=== PATIENT | female | born 1965 | race Caucasian/White ===

== ENCOUNTER → 2018-03-29 15:51 | Outpatient (CLI) | payer MEDICARE, SELFPAY ==
[2018-03-29 21:35] LABS: M R Staph aureus DNA By PCR POSITIVE (Negative); Staph aureus DNA By PCR POSITIVE (Negative)
[2018-03-29 21:36] LABS: Probe Check PASS
== END ==
PROVIDERS: Family Provider Family Medicine Geriatric Medicine; PCP Family Medicine Geriatric Medicine; Visit Provider Family Medicine Geriatric Medicine
DX: L03.119 Cellulitis of unspecified part of limb (principal)
CPT/HCPCS: 87070; 87077; 87186; 87205; 87640

== ENCOUNTER → 2018-04-18 08:35 | Outpatient (CLI) | payer MEDICARE, SELFPAY ==
--- NOTE | 2018-04-18 08:38 | US_ITS ---
STUDY: ULTRASOUND OF THE FEMALE PELVIS - COMPLETE REASON FOR EXAM: Female, 52 years old. Postmenopausal bleeding. LMP: The patient is postmenopausal. TECHNIQUE: Transabdominal and Transvaginal TECHNICAL QUALITY: Adequate. COMPARISON: None. FINDINGS: The uterus is anteverted and is in a midline position. The uterus measures 5.4 cm x 3.3 cm x 2.9 cm. Normal uterine cervix. The endometrium measures 3.0 mm in thickness, and is . There is no demonstrated endometrial mass. There is no demonstrated myometrial mass. I.U.D. - The patient does not have an I.U.D. The right ovary is non-visualized. The left ovary is non-visualized. There is no fluid in the cul-de-sac. Polycystic ovary disease: No. US/Transvaginal Non- IMPRESSION: Normal female pelvis. Electronically Signed: Bowen Dorado MD at 15:25 EDT Tel [phone], Service support ,
--- NOTE | 2018-04-18 08:38 | US_ITS ---
STUDY: ULTRASOUND OF THE FEMALE PELVIS - COMPLETE REASON FOR EXAM: Female, 52 years old. Postmenopausal bleeding. LMP: The patient is postmenopausal. TECHNIQUE: Transabdominal and Transvaginal TECHNICAL QUALITY: Adequate. COMPARISON: None. FINDINGS: The uterus is anteverted and is in a midline position. The uterus measures 5.4 cm x 3.3 cm x 2.9 cm. Normal uterine cervix. The endometrium measures 3.0 mm in thickness, and is . There is no demonstrated endometrial mass. There is no demonstrated myometrial mass. I.U.D. - The patient does not have an I.U.D. The right ovary is non-visualized. The left ovary is non-visualized. There is no fluid in the cul-de-sac. Polycystic ovary disease: No. US/Pelvic (Non ) IMPRESSION: Normal female pelvis. Electronically Signed: Bowen Dorado MD at 15:25 EDT Tel [phone], Service support ,
== END ==
PROVIDERS: Family Provider Family Medicine Geriatric Medicine; PCP Family Medicine Geriatric Medicine; Visit Provider Nurse Practitioner Women's Health
DX: N93.8 Other specified abnormal uterine and vaginal bleeding (principal)
CPT/HCPCS: 76830; 76856

== ENCOUNTER → 2018-08-10 11:36 | Outpatient (CLI) | payer MEDICARE, SELFPAY ==
[2018-08-10 13:17] LABS: Thyroid Stim Hormone (TSH) 6.13 uIU/mL (0.358-3.74)
== END ==
PROVIDERS: Family Provider Family Medicine Geriatric Medicine; PCP Family Medicine Geriatric Medicine; Visit Provider Family Medicine Geriatric Medicine
DX: E03.9 Hypothyroidism, unspecified (principal)
CPT/HCPCS: 36415; 84443

== ENCOUNTER → 2018-09-09 08:50 | Outpatient (CLI) | payer MEDICARE, SELFPAY | PROVIDERS: Family Provider Family Medicine Geriatric Medicine; PCP Family Medicine Geriatric Medicine; Referring Provider Family Medicine Geriatric Medicine; Visit Provider Family Medicine Geriatric Medicine | DX: E05.90 Thyrotoxicosis, unspecified without thyrotoxic crisis or storm (principal) ==

== ENCOUNTER → 2018-10-10 08:51 | Outpatient (CLI) | payer MEDICARE, SELFPAY ==
[2018-10-10 11:07] LABS: Thyroid Stim Hormone (TSH) 0.43 uIU/mL (0.358-3.74)
== END ==
PROVIDERS: Family Provider Family Medicine Geriatric Medicine; PCP Family Medicine Geriatric Medicine; Referring Provider Family Medicine Geriatric Medicine; Visit Provider Family Medicine Geriatric Medicine
DX: E05.90 Thyrotoxicosis, unspecified without thyrotoxic crisis or storm (principal)
CPT/HCPCS: 36415; 84443

== ENCOUNTER → 2018-10-19 10:11 | Outpatient (CLI) | payer MEDICARE, SELFPAY ==
--- NOTE | 2018-10-19 10:29 | RAD_ITS ---
STUDY: X-RAY - ABDOMEN/PELVIS REASON FOR EXAM: Female, 53 years old. Fecal impaction. TECHNIQUE: AP supine and upright views of the abdomen and pelvis. COMPARISON: None. FINDINGS: Normal visualized lung bases. There is a moderate amount of colonic fecal material. There is no demonstrated free abdominal air. The visualized liver, spleen and kidneys are grossly normal in size and morphology. Normal soft tissue structures. Normal visualized osseous structures. RAD/Abd Inc Decub and/or Erect IMPRESSION: Moderate amount of fecal material is seen in the colon. Electronically Signed: Bowen Dorado MD at 11:01 EST Tel [phone], Service support ,
[2018-10-19 13:26] LABS: Absolute Lymphocyte Count 0.96 X10^3/ul (0.83-4.51); Absolute Neutrophil Count 2.6 X10^3/uL (2.0-7.7); Basophil# 0.11 X10^3/uL; Basophil% 2.4 % (0-1); Eosinophil# 0.12 X10^3/uL; Eosinophils% 2.6 % (0-5); Hematocrit 42.5 % (37-47); Hemoglobin 13.6 g/dl (12.0-15.0); Lymphocyte # 0.96 X10^3/ul (4.0); Lymphocyte % 20.9 % (19-41); Mean Corpuscular Hgb 31.8 pg (27.0-32.0); Mean Corpuscular Volume 99.3 fL (81-99); Mean Platelet Vol. 11.4 fl (6.2-12.0); Monocyte# 0.78 X10^3/uL; Neutrophil # 2.63 X10^3/uL (2.7-7.7); Neutrophil % 57.1 % (47-70); Platelet Count 258 K/mm3 (150-450); RBC Distribution Width CV 15.2 % (11.6-14.6); RBC Distribution Width SD 55.3 fl (35.1-43.9); Red Blood Count 4.28 M/mm3 (4.2-5.4); White Blood Count 4.6 K/mm3 (4.4-11.0)
[2018-10-19 13:27] LABS: POSITIVE COUNT NO; POSITIVE DIFFERENTIAL NO; POSITIVE MORPHOLOGY NO
[2018-10-19 13:35] LABS: Vitamin D,25 Hydroxy 30.4 ng/mL (29.95-100.01)
[2018-10-19 13:38] LABS: ALB/GLOB Ratio 0.6 RATIO (0.9-2.4); AST(SGOT) 21 U/L (15-37); Alanine Aminotransfer ALT/SGPT 25 U/L (13-56); Albumin, Serum 2.8 g/dL (3.2-5.0); Alkaline Phosphatase 96 U/L (45-117); Anion Gap 8 (5-15); BUN 14 mg/dL (7-18); BUN/Creat Ratio 15.4 RATIO (10-20); Calcium,Total 8.8 mg/dL (8.5-10.1); Chloride 105 mmol/L (98-107); Creatinine, Serum 0.91 mg/dL (0.55-1.02); EST Glomerular Filtration Rate 69 mL/min (>60); Est Glom Filt Rate - Afr Amer 83 mL/min (>60); Globulin 4.5 g/dL (2.2-4.2); Glucose 78 mg/dL (74-106); Potassium 4.2 mmol/L (3.5-5.1); Protein, Total 7.3 g/dL (6.4-8.2); Sodium Level 140 mmol/L (136-145); Thyroid Stim Hormone (TSH) 0.34 uIU/mL (0.358-3.74)
[2018-10-19 16:19] LABS: M R Staph aureus DNA By PCR POSITIVE (Negative); Probe Check PASS; Staph aureus DNA By PCR POSITIVE (Negative)
== END ==
LOC: POLAB3 10:11 → RAD 10:26
PROVIDERS: Family Provider Family Medicine Geriatric Medicine; PCP Family Medicine Geriatric Medicine; Referring Provider Family Medicine Geriatric Medicine; Visit Provider Family Medicine Geriatric Medicine
DX: I10 Essential (primary) hypertension (principal); B95.62 Methicillin resistant Staphylococcus aureus infection as the cause of diseases classified elsewhere; E55.9 Vitamin D deficiency, unspecified; K56.41 Fecal impaction
CPT/HCPCS: 36415; 74019; 80053; 82306; 84443; 85025; 87640

== ENCOUNTER → 2019-06-13 10:36 | Outpatient (CLI) | payer MEDICARE, SELFPAY ==
[2019-06-13 12:18] LABS: Absolute Neutrophil Count 2.6 X10^3/uL (2.0-7.7); Basophil# 0.12 X10^3/uL; Basophil% 2.5 % (0-1); Eosinophil# 0.26 X10^3/uL; Eosinophils% 5.5 % (0-5); Hematocrit 42.6 % (37-47); Hemoglobin 13.7 g/dL (12.0-15.0); Lymphocyte % 21.2 % (19-41); Mean Corp Hgb Conc 32.2 g/dL (32-36); Mean Corpuscular Hgb 31.9 pg (27.0-32.0); Mean Corpuscular Volume 99.3 fL (81-99); Mean Platelet Vol. 11.1 fl (6.2-12.0); Monocyte# 0.78 X10^3/uL; Monocyte% 16.5 % (0-10); NRBC Flagged by Analyzer 0 % (0-5); Neutrophil # 2.56 X10^3/uL (2.7-7.7); Neutrophil % 54.3 % (47-70); Platelet Count 212 K/mm3 (150-450); RBC Distribution Width CV 15.3 % (11.6-14.6); RBC Distribution Width SD 56.7 fl (35.1-43.9); Red Blood Count 4.29 M/mm3 (4.2-5.4); White Blood Count 4.7 K/mm3 (4.4-11.0)
[2019-06-13 12:43] LABS: ALB/GLOB Ratio 0.7 RATIO (0.9-2.4); AST(SGOT) 20 U/L (15-37); Alanine Aminotransfer ALT/SGPT 33 U/L (13-56); Albumin, Serum 3.2 g/dL (3.2-5.0); Alkaline Phosphatase 95 U/L (45-117); Anion Gap 7 (5-15); BUN 16 mg/dL (7-18); BUN/Creat Ratio 17.1 RATIO (10-20); Calcium,Total 9.3 mg/dL (8.5-10.1); Chloride 107 mmol/L (98-107); Creatinine, Serum 0.94 mg/dL (0.55-1.02); EST Glomerular Filtration Rate 67 mL/min (>60); Est Glom Filt Rate - Afr Amer 80 mL/min (>60); Globulin 4.4 g/dL (2.2-4.2); Glucose 81 mg/dL (74-106); Protein, Total 7.6 g/dL (6.4-8.2); Sodium Level 144 mmol/L (136-145); Thyroid Stim Hormone (TSH) 0.86 uIU/mL (0.358-3.74)
== END ==
PROVIDERS: Family Provider Family Medicine Geriatric Medicine; PCP Family Medicine Geriatric Medicine; Visit Provider Family Medicine Geriatric Medicine
DX: I10 Essential (primary) hypertension (principal)
CPT/HCPCS: 36415; 80053; 84443; 85025

== ENCOUNTER → 2019-10-10 13:57 | Outpatient (CLI) | payer MEDICARE, SELFPAY ==
[2019-10-10 16:04] LABS: M R Staph aureus DNA By PCR Negative (Negative); Probe Check PASS; Specimen Processing Control PASS; Staph aureus DNA By PCR NEGATIVE (Negative)
== END ==
PROVIDERS: Family Provider Family Medicine Geriatric Medicine; PCP Family Medicine Geriatric Medicine; Visit Provider Family Medicine Geriatric Medicine
DX: L03.116 Cellulitis of left lower limb (principal); B95.62 Methicillin resistant Staphylococcus aureus infection as the cause of diseases classified elsewhere
CPT/HCPCS: 87070; 87205; 87640

== ENCOUNTER → 2019-10-23 10:15 | Outpatient (CLI) | payer MEDICARE, SELFPAY ==
[2019-10-23 13:09] LABS: Absolute Lymphocyte Count 0.61 X10^3/uL (0.83-4.51); Absolute Neutrophil Count 4.4 X10^3/uL (2.0-7.7); Basophil% 1.6 % (0-1); Eosinophil# 0.08 X10^3/uL; Eosinophils% 1.3 % (0-5); Hematocrit 39.9 % (37-47); Lymphocyte # 0.61 X10^3/ul (4.0); Mean Corp Hgb Conc 32.6 g/dL (32-36); Mean Corpuscular Hgb 31.9 pg (27.0-32.0); Mean Platelet Vol. 11.5 fl (6.2-12.0); Monocyte# 0.86 X10^3/uL; Monocyte% 14.1 % (0-10); NRBC Flagged by Analyzer 0 % (0-5); Neutrophil # 4.41 X10^3/uL (2.7-7.7); Neutrophil % 72.7 % (47-70); Platelet Count 216 K/mm3 (150-450); RBC Distribution Width CV 14.8 % (11.6-14.6); RBC Distribution Width SD 54.4 fl (35.1-43.9); Red Blood Count 4.07 M/mm3 (4.2-5.4); White Blood Count 6.1 K/mm3 (4.4-11.0)
[2019-10-23 13:24] LABS: Vitamin D,25 Hydroxy 30.3 ng/mL (29.95-100.01)
[2019-10-23 13:30] LABS: ALB/GLOB Ratio 0.6 RATIO (0.9-2.4); AST(SGOT) 24 U/L (15-37); Alanine Aminotransfer ALT/SGPT 27 U/L (13-56); Albumin, Serum 2.7 g/dL (3.2-5.0); Alkaline Phosphatase 92 U/L (45-117); Anion Gap 3 (5-15); BUN 13 mg/dL (7-18); BUN/Creat Ratio 13.4 RATIO (10-20); Calcium,Total 8.8 mg/dL (8.5-10.1); Chloride 105 mmol/L (98-107); Creatinine, Serum 0.97 mg/dL (0.55-1.02); EST Glomerular Filtration Rate 64 mL/min (>60); Est Glom Filt Rate - Afr Amer 77 mL/min (>60); Globulin 4.8 g/dL (2.2-4.2); Glucose 103 mg/dL (74-106); Potassium 4.4 mmol/L (3.5-5.1); Protein, Total 7.5 g/dL (6.4-8.2); Sodium Level 137 mmol/L (136-145); Thyroid Stim Hormone (TSH) 3.07 uIU/mL (0.358-3.74)
== END ==
PROVIDERS: Family Provider Family Medicine Geriatric Medicine; PCP Family Medicine Geriatric Medicine; Referring Provider Family Medicine Geriatric Medicine; Visit Provider Family Medicine Geriatric Medicine
DX: I10 Essential (primary) hypertension (principal); E55.9 Vitamin D deficiency, unspecified; R50.9 Fever, unspecified
CPT/HCPCS: 36415; 80053; 82306; 84443; 85025; 87633

== ENCOUNTER → 2020-02-23 11:36 | Outpatient (CLI) | payer MEDICARE, SELFPAY ==
[2020-02-23 12:47] LABS: Absolute Lymphocyte Count 1.07 X10^3/uL (0.83-4.51); Absolute Neutrophil Count 2.3 X10^3/uL (2.0-7.7); Basophil# 0.09 X10^3/uL; Eosinophil# 0.19 X10^3/uL; Eosinophils% 4.3 % (0-5); Hematocrit 38.3 % (37-47); Hemoglobin 12.2 g/dL (12.0-15.0); Lymphocyte # 1.07 X10^3/ul (4.0); Mean Corp Hgb Conc 31.9 g/dL (32-36); Mean Corpuscular Hgb 32.1 pg (27.0-32.0); Mean Corpuscular Volume 100.8 fL (81-99); Mean Platelet Vol. 11.3 fl (6.2-12.0); Monocyte# 0.79 X10^3/uL; Monocyte% 17.7 % (0-10); NRBC Flagged by Analyzer 0 % (0-5); Neutrophil # 2.31 X10^3/uL (2.7-7.7); Neutrophil % 51.8 % (47-70); Platelet Count 180 K/mm3 (150-450); RBC Distribution Width CV 14.4 % (11.6-14.6); RBC Distribution Width SD 52.7 fl (35.1-43.9); White Blood Count 4.5 K/mm3 (4.4-11.0)
[2020-02-23 13:09] LABS: Anion Gap 4 (5-15); BUN 11 mg/dL (7-18); BUN/Creat Ratio 13.6 RATIO (10-20); Calcium,Total 8.5 mg/dL (8.5-10.1); Chloride 110 mmol/L (98-107); Creatinine, Serum 0.81 mg/dL (0.55-1.02); EST Glomerular Filtration Rate 78 mL/min (>60); Est Glom Filt Rate - Afr Amer 95 mL/min (>60); Glucose 80 mg/dL (74-106); Potassium 4.1 mmol/L (3.5-5.1); Sodium Level 143 mmol/L (136-145)
== END ==
PROVIDERS: PCP Family Medicine Geriatric Medicine; Visit Provider Family Medicine Geriatric Medicine
DX: R42 Dizziness and giddiness (principal)
CPT/HCPCS: 36415; 80048; 85025

== ENCOUNTER → 2020-06-27 08:29 | Outpatient (CLI) | payer MEDICARE, SELFPAY ==
--- NOTE | 2020-06-27 08:40 | CT_ITS ---
STUDY: CT MAXILLOFACIAL SINUSES REASON FOR EXAM: Female, 54 years old. SINUSITIS HAVING HEADACHES RADIATION DOSAGE (If Supplied By Facility): CTDIvol = ( 33.06 ) mGy, DLP = ( 730.55 ) mGycm TECHNIQUE: The patient was scanned in a multi detector CT scanner. High resolution axial imaging was performed without the administration of intravenous contrast material. Sagittal and coronal images were reconstructed. Individualized dose optimization techniques were used for this CT. COMPARISON: None. FINDINGS: FRONTAL SINUSES: Normal aeration, without mucosal inflammatory disease. ETHMOIDAL SINUSES: Normal aeration, without mucosal inflammatory disease. MAXILLARY SINUSES: Normal aeration, without mucosal inflammatory disease. SPHENOIDAL SINUSES: Normal aeration, without mucosal inflammatory disease. There is patency of the bilateral maxillary infundibuli with normal uncinate processes, ethmoid bullae, and hiatus semilunaris. Normal bilateral middle turbinates. Normal bilateral inferior turbinates. There is a minimal left sided nasal septal deviation, but without a nasal septal spur. There is patency of the bilateral nasal airways. The visualized osseous structures are normal. The visualized bilateral orbital contents are normal. CT/Sinus/Facial Bone IMPRESSION: Normal CT examination of the maxillofacial sinuses. Electronically Signed: Bowen Dorado, at 10:42 EDT , Service support ,
== END ==
PROVIDERS: PCP Family Medicine Geriatric Medicine; Referring Provider Otolaryngology; Visit Provider Otolaryngology
DX: J32.9 Chronic sinusitis, unspecified (principal)
CPT/HCPCS: 70486

== ENCOUNTER 2020-08-14 04:01 | Inpatient (IN) | payer MEDICARE, SELFPAY ==
[2020-08-14] VITALS (15 sets, daily range): BP systolic 80–148; BP diastolic 43–107; PULSE 70–126; RESP 18–20; TEMP 36.6–37.7; O2SAT 94–100; BMI 40.8; BMI 40.2; BMI 40.3
--- NOTE | 2020-08-14 04:02 | RAD_ITS ---
STUDY: X-RAY CHEST REASON FOR EXAM: Female, 55 years old. patient with cough, headache, chills, frequent urination and confusion. -- BEST IMAGES POSSIBLE, PATIENT HAS A HX OF DOWN SYNDROME AND DEMENTIA TECHNIQUE: Single AP portable view of the chest. COMPARISON: None. FINDINGS: Ill-defined subpleural groundglass opacities are seen more prominent in the lung bases , may represent atypical pneumonia or viral pneumonia (COVID-19 ?). There is no demonstrated pleural abnormality. Normal size heart. Normal mediastinum and obdulia. Normal visualized pulmonary arteries. Normal visualized aortic arch and descending thoracic aorta. Normal visualized thoracic spine. Normal visualized ribs, clavicles, and shoulders. There is no demonstrated abnormality of the visualized soft tissue structures of the upper abdomen. RAD/Chest 1 View (Portable) IMPRESSION: Ill-defined subpleural groundglass opacities are seen more prominent in the lung bases , may represent atypical pneumonia or viral pneumonia (COVID-19 ?). Electronically Signed: Kenny Baker, at 6:03 EST Tel , Service support ,
--- NOTE | 2020-08-14 04:03 | ED.DCSUM_ITS ---
History of Present Illness Chief Complaint: General Illness Informant: Patient, Family Onset: Days Context: Gradual Onset Timing: Continuous Current Severity: Moderate Maximum Severity: Moderate Narrative: Patient is a 55-year-old female with medical history significant for Down syndrome, anxiety, and dementia who presents to the emergency department with increased urinary frequency and some confusion. Per the sister at the bedside who is the patient's POA, she has been having some increasing urinary frequency for the past few days. She states she is also been having a cough. she states she does get urinary tract infections from time to time. She states that she is also been complaining of mild cough. Tonight, she had some chills but no fever. She currently lives [facility] [place] [facility]. 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 The patient has had some precipitous decline over the past few months with her Down syndrome and dementia. She is lost some ability to function with her gait. She is also been more confused, especially at night. Prior similar symptoms: No Recent Illness/Hospitalization: No Past Medical History - Allergies and Home Meds Allergies/Adverse Reactions: Allergies No Known Allergies Allergy (Verified 08/14/20 04:05) Primary Care Physician: Silvio Hurtado Chi, MD [Primary Care Provider] - Prior records reviewed: Yes Past Medical History: - - Down syndrome, dementia, anxiety Surgical History: noncontributory Review of Systems General: Reports: Chills. Denies: Fever, Sweats Eyes: Denies: Visual changes - bilaterally, Diplopia ENT: Denies: Rhinorrhea, Sore throat Cardiovascular: Denies: Chest pain, Palpitations Respiratory: Reports: Cough. Denies: Dyspnea, Dyspnea on exertion Gastrointestinal: Denies: Abdominal pain, Nausea, Vomiting, Diarrhea, Melena, Hematochezia Genitourinary: Reports: Dysuria, Hematuria, Frequency Musculoskeletal: Denies: Back pain, Extremity Pain Skin: Denies: Rash, Wounds Neurological: Denies: Headache, Weakness, Numbness Physical Exam Inital Vital Signs reviewed: Yes General: Well nourished, Well developed, No Acute Distress Head: Normocephalic, Atraumatic Eyes: Perrl, EOMI ENT: Moist mucous membranes, No rhinorrhea Neck: Supple, Nontender Cardiovascular: Regular rate, Regular rhythm, No murmurs Respiratory: No distress, CTA bilaterally, Chest nontender Abdomen: Soft, Nontender, Nondistended, Normal bowel sounds Back: Nontender, Normal Inspection Extremities: Nontender, No edema Skin: Normal color, No rash Neurological: Alert, Oriented x3, Cranial nerves II-XII grossly intact, Normal Strength, Normal Sensation Psychological: Normal affect, Normal Mood Diagnostic/Tx/Re-eval - Medical Decision Making On arrival, the patient is agitated. Her sister states that she is not comfortable in medical situations because of her Down syndrome. She had borderline oxygen saturations of 90 and had a T-max of 100. We were able to obtain a urine, but this obviously did not show infection. I discussed this with the sister. She is comfortable with more aggressive measures. Because of the patient's agitation and confusion, she was given 10 mg of IM Geodon. We were able to obtain blood work. She does have a leukocytosis, but otherwise her labs are unremarkable. Her chest x-ray is concerning for by lobar pneumonia. Her Covid is pending. When the patient got out of bed to use the bedside commode, she became hypoxic and tachypneic with saturations of 86%. With her hypoxia and infectious process, I do feel that she will require admission. The patient was discussed with the hospitalist. Impression 1. Sepsis 2. Pneumonia 3. Hypoxia ED Disposition - Plan for ED Patient: Referrals: Silvio Hurtado Chi, MD [Primary Care Provider] -
[2020-08-14] MEDS: Ziprasidone IM 20 MG/ML VIAL 10 MG IM (04:40)
[2020-08-14 04:45] LABS: Bacteria 0 SEEN /hpf (None Seen); Color, Urine Yellow (Yellow); Glucose, Dipstick Normal (Normal); Ketone-Dipstick Negative (Negative); Leukocyte Esterase-Dipstick Negative /ul (Negative); Mucous, Urine 0 SEEN /hpf (<or=2+); Nitrite-Dipstick Negative (Negative); Occult Blood-Urine Negative /ul (Negative); Protein-Dipstick 15 mg/dl (Negative); Red Blood Cells-Urine 0 SEEN /hpf (0-5); Specific Gravity, Urine 1.015 (1.002-1.030); Urine Bilirubin Dipstick Negative (Negative); Urine Clarity Clear (Clear); Urine Urobilinogen Normal (Normal); Urine pH 6.5 (5.0 - 8.0); White Blood Cells 0 SEEN /hpf (0-5)
[2020-08-14 04:51] LABS: Squamous Epithelial Cells - UA 0-5 SEEN /hpf (5-10)
[2020-08-14] MEDS: 0.9% Normal Saline 1,000 ML 1000 ML IV (05:09)
[2020-08-14 05:19] LABS: Absolute Lymphocyte Count 0.39 X10^3/uL (0.83-4.51); Absolute Neutrophil Count 11.3 X10^3/uL (2.0-7.7); Basophil# 0.06 X10^3/uL; Basophil% 0.5 % (0-1); Eosinophil# 0.03 X10^3/uL; Eosinophils% 0.2 % (0-5); Hematocrit 40.7 % (37-47); Hemoglobin 13.3 g/dL (12.0-15.0); Lymphocyte # 0.39 X10^3/ul (4.0); Lymphocyte % 3.1 % (19-41); Mean Corp Hgb Conc 32.7 g/dL (32-36); Mean Corpuscular Hgb 31.4 pg (27.0-32.0); Mean Corpuscular Volume 96.2 fL (81-99); Mean Platelet Vol. 10.7 fl (6.2-12.0); Monocyte# 0.62 X10^3/uL; NRBC Flagged by Analyzer 0 % (0-5); Neutrophil # 11.29 X10^3/uL (2.7-7.7); Neutrophil % 90.8 % (47-70); POSITIVE DIFFERENTIAL YES; Platelet Count 215 K/mm3 (150-450); RBC Distribution Width CV 14.6 % (11.6-14.6); RBC Distribution Width SD 51.6 fl (35.1-43.9); Red Blood Count 4.23 M/mm3 (4.2-5.4); White Blood Count 12.4 K/mm3 (4.4-11.0)
[2020-08-14 05:21] LABS: Differential Indicated SCAN CRITERIA MET
[2020-08-14 05:43] LABS: ALB/GLOB Ratio 0.7 RATIO (0.9-2.4); AST(SGOT) 33 U/L (15-37); Alanine Aminotransfer ALT/SGPT 29 U/L (13-56); Alkaline Phosphatase 92 U/L (45-117); Anion Gap 5 (5-15); BUN 15 mg/dL (7-18); Calcium,Total 8.6 mg/dL (8.5-10.1); Chloride 103 mmol/L (98-107); Creatinine, Serum 0.94 mg/dL (0.55-1.02); EST Glomerular Filtration Rate 66 mL/min (>60); Est Glom Filt Rate - Afr Amer 80 mL/min (>60); Estimated Creatinine Clearance 82.95 ml/min; Globulin 4.4 g/dL (2.2-4.2); Glucose 125 mg/dL (74-106); Lactic Acid 1.2 mmol/L (0.4-1.9); Potassium 4.4 mmol/L (3.5-5.1); Protein, Total 7.4 g/dL (6.4-8.2); Sodium Level 136 mmol/L (136-145)
[2020-08-14 05:45] LABS: Differential Comment SCANNED
--- NOTE | 2020-08-14 05:52 | HP.PCM_ITS ---
Problem List (1) Sepsis Status: Acute Qualifiers: Sepsis type: sepsis due to unspecified organism Sepsis acute organ dysfunction status: unspecified Qualified Code(s): A41.9 - Sepsis, unspecified organism (2) Encephalopathy acute Status: Acute (3) Pneumonia Status: Acute Qualifiers: Pneumonia type: due to unspecified organism Laterality: bilateral Lung location: unspecified part of lung Qualified Code(s): J18.9 - Pneumonia, unspecified organism (4) Suspected COVID-19 virus infection Status: Acute (5) Anxiety and depression Status: Chronic (6) Dementia Status: Chronic Qualifiers: Dementia type: unspecified type (7) Hypothyroidism Status: Chronic Qualifiers: Hypothyroidism type: unspecified Qualified Code(s): E03.9 - Hypothyroidism, unspecified (8) Down syndrome Status: Chronic History of Present Illness Date of Admission: 08/14/20 Chief Complaint: Fever, chills, cough, confusion, urinary frequency The patient is a 55 y/o F w/ PMHx: Hypothyroidism, Down Syndrome, Dementia unclear type with unclear behavioral disturbance history, Anxiety and Depression, Morbid Obesity who presents to the [facility] ED on 08/14/20 living currently with her Sister (AXEL) with history of 3 days of increased urinary frequency, confusion, fever and chills with recent cough prompting referral to [facility] ED initially for concern for UTI. Sister also noted sister appeared only this evening to be short of breath. She was very agitated upon presentation and combative upon presentation. Family notes she has been more agitated and upset in the evenings. The patient does go to work with her sister who works at a bank he notes that they are isolated in a single room. He does take her grocery shopping but notes that she wears a mask. Work-up in the ED included T1 100, heart rate initially 126, BP 134/77, respiratory rate 18, 94% on room air, CBC with WBC 12.4, hemoglobin 13.3, platelet 215 with left shift with concurrent lymphopenia, CMP with glucose 125, lactic acid 1.2, urinalysis not severe appearing, COVID lab pending, CXR with bilobar PNA. In the ED patient ambulation with decreased oxygenation 86% on RA from bedside commode to ED bed. In the ED patient administered azithromycin, rocephin, NS and Geodon secondary to agitation and combativeness. Past Medical History Past Medical History (Chronic Problems): Chronic Problems Anxiety and depression (Chronic) Dementia (Chronic) Hypothyroidism (Chronic) Down syndrome (Chronic) Allergies No Known Allergies Allergy (Verified 08/14/20 04:05) Home Medications: Ambulatory Orders Medication Instructions Recorded Citalopram [Celexa] 20 mg PO DAILY 08/14/20 Donepezil HCl 1 tab PO DAILY 08/14/20 Levothyroxine Sodium [Euthyrox] 112 mcg PO DAILY 08/14/20 Surgical History: - - Uterine fibroid resection. Psychiatric History: Anxiety, Depression [employer] History: uterine fibroids Lives: With Family Smoking Status: Never smoker Tobacco Use: Non-smoker Alcohol: None Drugs: None - *Family History Maternal History Items: Cancer - History of lung cancer with tobacco use concurrent history., Diabetes Paternal History Items: Cancer - History of lung cancer with tobacco use history concurrently., Diabetes Review of Systems Constitutional: Reports: Anorexia, Chills, Fever, Malaise, Weakness, Fatigue. Denies: Weight Change HEENT: Reports: Sinus Congestion. Denies: Head Aches, Sinus Drainage Cardiovascular: Denies: Chest Pain, Palpitations Respiratory: Reports: Cough, Shortness of Breath. Denies: Shortness of breath at rest, Shortness of breath upon exertion, Sputum production Gastrointestinal: Denies: Abdominal Pain, Nausea, Vomiting Genitourinary: Reports: Frequency. Denies: Dysuria Musculoskeletal: Reports: Joint Pain. Denies: Joint Tenderness Skin: Denies: Rash, Wounds Neurological: Reports: Confusion. Denies: Focal weakness, Numbness, Tingling Psychiatric: Reports: Anxiety, Depression. Denies: Homicidal Ideations, Suicidal Ideations Endocrine: Reports: Heat/ Cold Intolerance Hematologic/ Lymphatic: Denies: Easy Bruising, Easy Bleeding VTE Information - Inpt Only VTE Present on Admission: No VTE Mechan Device Prophylaxis: SCD's VTE Pharm Prophylaxis ordered?: Yes Subjective: Patient seated upright in the ED bed, fatigued, recent Geodon, no distress currently. Objective: Physical Examination: General: Patient sleeping, does awaken during examination but falls back asleep, not currently alert, not answering orientation questions, recent Geodon administration secondary to agitation, seated upright in the ED bed, no acute distress currently. Skin: normal color, turgor, no icterus, cyanosis. HEENT: AT/NC, EOMI, PERRLA, dry MM, no carotid bruits or JVD noted. Lungs: Diminished breath sounds bilaterally, greater bilateral bases, mildly increased effort, no obvious distress, no rales, ronchi or wheezing. Heart: Tachycardic with regular rhythm; no gallop, rub audible. Abdomen: soft, morbidly obese, NTTP, ND, normal BS, no obvious HSM however habitus makes examination difficult. Extremities: no cyanosis, clubbing, or edema. Neurological: Patient sleeping, does awaken during examination but falls back asleep, not currently alert, not answering orientation questions, recent Geodon administration secondary to agitation, seated upright in the ED bed, no acute distress currently; cognitive function not baseline intact with underlying dementia history; pupils equally reactive to light and accomodation; cranial nerves difficult to assess given current sedate habitus but when awakens grossly appears normal, moving all extremities to stimuli, strength severely global decreased. Psychiatric: affect appears currently flat, fatigued, received sedation, was very combative and anxious prior, no acute evidence of depressive or anxiety feelings. - Physical Exam Vitals/I&O's: Vital Signs Temp Pulse Resp BP Pulse Ox 99.9 F H 86 18 134/77 H 98 08/14/20 05:15 08/14/20 05:15 08/14/20 05:15 08/14/20 05:15 08/14/20 05:15 Oxygen Flow Rate (L/min) 2 Oxygen Delivery Method Nasal Cannula Weight: 169 lb 5.04 oz Body Mass Index (BMI) 40.8 Laboratory Results 08/14/20 04:35: Urine Color Yellow, Urine Clarity Clear, Urine pH 6.5, Ur Specific [place] 1.015, Urine Protein 15 H, Urine Glucose (UA) Normal, Urine Ketones Negative, Urine Occult Blood Negative, Urine Nitrite Negative, Urine Bilirubin Negative, Urine Urobilinogen Normal, Ur Leukocyte Esterase Negative, Urine RBC 0 SEEN, Urine WBC 0 SEEN, Ur Squamous Epith Cells 0-5 SEEN, Urine Bacteria 0 SEEN, Urine Mucus 0 SEEN 08/14/20 04:58: COVID-19 (JAZMIN) Pending 08/14/20 05:10: WBC 12.4 H, RBC 4.23, Hgb 13.3, Hct 40.7, MCV 96.2, MCH 31.4, MCHC 32.7, RDW Std Deviation 51.6 H, RDW Coeff of Karrie 14.6, Plt Count 215, MPV 10.7, Immature Gran % (Auto) 0.400, Neut % (Auto) 90.8 H, Lymph % (Auto) 3.1 L, [place] % (Auto) 5.0, Eos % (Auto) 0.2, Baso % (Auto) 0.5, Absolute Neuts (auto) 11.3 H, Absolute Lymphs (auto) 0.39 L, Nucleated RBC % 0, Differential Comment SCANNED 08/14/20 05:10: Sodium 136, Potassium 4.4, Chloride 103, Carbon Dioxide 28.0, Anion Gap 5, BUN 15, Creatinine 0.94, Estim Creat Clear Calc 82.95, Est GFR (MDRD) Af Amer 80, Est GFR (MDRD) Non-Af 66, BUN/Creatinine Ratio 16.0, Glucose 125 H, Calcium 8.6, Total Bilirubin 0.70, AST 33, ALT 29, Alkaline Phosphatase 92, Total Protein 7.4, Albumin 3.0 L, Globulin 4.4 H, Albumin/Globulin Ratio 0.7 L 08/14/20 05:10: Lactic Acid 1.2 Current Medications Ceftriaxone Sodium (Rocephin) 1 gm in 50 mls @ 100 mls/hr IV X1 ONE Stop: 08/14/20 06:13 Azithromycin 500 mg/ Dextrose 255 mls @ 250 mls/hr IV X1 ONE Stop: 08/14/20 06:45 Assessment/Plan All Active Problems Sepsis (Acute) Encephalopathy acute (Acute) Pneumonia (Acute) Suspected COVID-19 virus infection (Acute) The patient is a 55 y/o F w/ PMHx: Hypothyroidism, Down Syndrome, Dementia unclear type with unclear behavioral disturbance history, Anxiety and Depression, Morbid Obesity who presents to the [facility] ED on 08/14/20 living currently with her Sister (POA) with history of 3 days of increased urinary frequency, confusion, fever and chills with recent cough with dyspnea. 1. Acute Encephalopathy secondary to Acute Sepsis secondary to Acute Hypoxia, Cough, Fever with Bilateral Pneumonia secondary to Suspected Acute Viral Syndrome, COVID-19: Will admit to the COVID unit pending ED COVID testing results, will maintain on oxygen with wean as tolerated to room air, PRN albu terol, maintain on IV Rocephin and Azithromycin with pending COVID as noted, HOB, IS parameters w/ pending sputum cultures and urine antigens, respiratory viral panel, will obtain procalcitonin, CRP, CPK, Ferritin, LDH, d-dimer, continue supportive care including q 2 hour. If patient worsens would transition to ICU care and consult ICU. 2. Down Syndrome with Underlying Dementia, Unclear Type with unclear behavioral disturbance history: We will continue patient home donepezil regimen, complicates presentation, required 1 dose of Geodon in the ED with improvement following, continue closely monitor. 3. Hypothyroidism: Will continue home synthroid regimen. 4. Anxiety and Depression: Will continue home celexa regimen. 5. DVT prophylaxis: SCDs, Lovenox. 6. CODE status: Patient ELTON is her sister who is present and living will is currently in place per sisters discussion. Discussed CODE status at length including difference between FULL code, DNR-CCA and DNR-CC status. Following discussions about the differences in these status, requested Full Code status; however if she declined patient would not want prolonged care. Advanced Care Planning Face to Face Time: 16 minutes. Inpatient E&M: 32631 Init Hosp L3 Procedures: 22571 Advncd Care Plan 30 Min
[2020-08-14] MEDS: Ceftriaxone 1 GM/50 ML BAG IV (05:59)
[2020-08-14] MEDS: dexAMETHasone 4 MG/ML Vial 6 MG IV (06:30)
--- NOTE | 2020-08-14 06:35 | NURSING ---
white ms2 covid suspected covid, pna, sepsis
[2020-08-14 07:01] LABS: Probe Check PASS; Specimen Processing Control PASS
--- NOTE | 2020-08-14 07:33 | ED.RN ---
PREVIOUS SEPSIS ALERT CANCELLED AFTER BLOOD PRESSURE CUFF ADJUSTED AND REPLACED. 2 BP IN MORE NORMAL RANGE
--- NOTE | 2020-08-14 10:18 | NURSING ---
NEW ROOM 105
[2020-08-14 11:57] LABS: Ferritin 170 ng/mL (8-252); LDH 282 U/L (84-246)
--- NOTE | 2020-08-14 12:48 | PCM.PN.BLA ---
Progress Note Patient is a 55-year-old lady with history of Down syndrome brought to the emergency department by her sister on account of patient experiencing rigors with associated cough and frequent urination and confusion. An assessment of suspected acute viral infection was made. Patient COVID-19 assay however came back negative. Admitted to regular nursing floor where patient is currently being managed Patient seen and examined. Her initial assessment including history and physical, diagnostic data and management orders reviewed will follow. STROKE Vital Signs/Narrative: Vital Signs Temp Pulse Resp BP Pulse Ox 08/14/20 11:37 99.8 F H 112 H 18 140/81 H 98 08/14/20 09:22 99.9 F H 84 18 110/63 99
[2020-08-14] MEDS: 0.9% Normal Saline 1,000 ML 75 ML IV (13:01)
[2020-08-14] MEDS: Enoxaparin 40 MG/0.4 ML Syringe SC (13:01)
[2020-08-14 18:50] LABS: Procalcitonin 0.25 ng/mL (0.00-0.09)
[2020-08-14 18:51] LABS: BNP,B-Type NATRIURETIC PEPTIDE 32.4 pg/mL (0-100)
[2020-08-14] MEDS: Famotidine 20 MG Tablet PO (21:44)
[2020-08-14] MEDS: Donepezil HCl 10 MG Tablet PO (21:44)
[2020-08-15] VITALS (7 sets, daily range): BP systolic 104–109; BP diastolic 60–68; PULSE 77–84; RESP 16–18; TEMP 37.3; O2SAT 94–96
[2020-08-15] MEDS: 0.9% Normal Saline 1,000 ML 75 ML IV (00:52)
[2020-08-15] MEDS: Acetaminophen 325 MG Tablet 650 MG PO (02:43)
[2020-08-15] MEDS: Levothyroxine 112 MCG Tablet PO (02:43)
[2020-08-15] MEDS: Albuterol 2.5 MG/3 ML VIAL.NEB. INHALATION (03:17)
[2020-08-15 05:28] LABS: Absolute Neutrophil Count 12.8 X10^3/uL (2.0-7.7); Basophil# 0.03 X10^3/uL; Basophil% 0.2 % (0-1); Hematocrit 37.1 % (37-47); Hemoglobin 11.8 g/dL (12.0-15.0); Lymphocyte % 8.1 % (19-41); Mean Corp Hgb Conc 31.8 g/dL (32-36); Mean Corpuscular Hgb 31.4 pg (27.0-32.0); Mean Corpuscular Volume 98.7 fL (81-99); Mean Platelet Vol. 10.7 fl (6.2-12.0); Monocyte# 0.73 X10^3/uL; Monocyte% 4.9 % (0-10); NRBC Flagged by Analyzer 0 % (0-5); Neutrophil # 12.82 X10^3/uL (2.7-7.7); Neutrophil % 86.4 % (47-70); Platelet Count 220 K/mm3 (150-450); RBC Distribution Width CV 15.1 % (11.6-14.6); RBC Distribution Width SD 55.1 fl (35.1-43.9); Red Blood Count 3.76 M/mm3 (4.2-5.4); White Blood Count 14.8 K/mm3 (4.4-11.0)
[2020-08-15 05:54] LABS: ALB/GLOB Ratio 0.6 RATIO (0.9-2.4); AST(SGOT) 21 U/L (15-37); Alanine Aminotransfer ALT/SGPT 22 U/L (13-56); Albumin, Serum 2.5 g/dL (3.2-5.0); Alkaline Phosphatase 76 U/L (45-117); Anion Gap 5 (5-15); BUN 15 mg/dL (7-18); BUN/Creat Ratio 18.6 RATIO (10-20); Calcium,Total 8.3 mg/dL (8.5-10.1); Chloride 109 mmol/L (98-107); Creatinine, Serum 0.81 mg/dL (0.55-1.02); EST Glomerular Filtration Rate 79 mL/min (>60); Est Glom Filt Rate - Afr Amer 95 mL/min (>60); Estimated Creatinine Clearance 95.01 ml/min; Globulin 4.1 g/dL (2.2-4.2); Glucose 110 mg/dL (74-106); Potassium 3.5 mmol/L (3.5-5.1); Protein, Total 6.6 g/dL (6.4-8.2); Sodium Level 140 mmol/L (136-145)
[2020-08-15] MEDS: Citalopram 20 MG Tablet PO (08:49)
[2020-08-15] MEDS: Famotidine 20 MG Tablet PO (08:49)
[2020-08-15] MEDS: Enoxaparin 40 MG/0.4 ML Syringe SC (08:49)
--- NOTE | 2020-08-15 10:58 | DCINST_ITS ---
- Discharge Diagnoses Current Active Problems: Current Active and Chronic Problems Sepsis (Acute) Encephalopathy acute (Acute) Pneumonia (Acute) Suspected COVID-19 virus infection (Acute) Anxiety and depression (Chronic) Dementia (Chronic) Hypothyroidism (Chronic) Down syndrome (Chronic) You will use the following diet at home:: No restrictions Discharge Activity: Return to Normal Activity Call your doctor if you observe: Fever of 101 or Higher, Shortness of breath, Dizziness, Fainting spells, Chest pain Allergies/Adverse Reactions: Allergies No Known Allergies Allergy (Verified 08/14/20 04:05) Medications to take at Discharge Citalopram [Celexa] 20 mg PO DAILY 08/14/20 Donepezil HCl 1 tab PO DAILY 08/14/20 Levothyroxine Sodium [Euthyrox] 112 mcg PO DAILY 08/14/20 Amox/Clavulanate Tablet [Augmentin Tablet] 875 mg PO Q12H #14 tab 08/15/20 The following prescriptions were given: Amox/Clavulanate Tablet [Augmentin Tablet] 875 mg PO Q12H #14 tab Transmission Status: Pending to [facility] Primary Care Physician: Silvio Hurtado Chi, MD [Primary Care Provider] - Please follow up with your Primary Care Physician in: 3-5 Days Test Results: Test results from this visit will be discussed in further detail at your follow- up appointment, if applicable. Proposed Discharge Date: 08/15/20
--- NOTE | 2020-08-15 10:59 | DS.PCM_ITS ---
<Jia Marshall MILL RECORDER - Last Filed: 08/15/20 11:12> Discharge Date and Diagnosis - Problem List Patient Problems: Active and Suspected Problems Sepsis (Acute) Encephalopathy acute (Acute) Pneumonia (Acute) Suspected COVID-19 virus infection (Acute) Date of Admission: 08/14/20 Date of Discharge: 08/15/20 - Primary Discharge Diagnosis Acute Problems: Active Problems 1. Acute sepsis secondary to bilateral community-acquired pneumonia 2. Acute hypoxic respiratory insufficiency secondary to #1 3. Acute encephalopathy, secondary to #1/#2 4. Down syndrome with underlying dementia, history of behavioral disturbances 5. Hypothyroidism 6. Anxiety/depression - Secondary Discharge Diagnosis Chronic Problems: Chronic Problems Anxiety and depression (Chronic) Dementia (Chronic) Hypothyroidism (Chronic) Down syndrome (Chronic) Hospital Course and Treatment Imaging Results: Diagnostic Data Chest X-Ray 08/14/20 04:02 IMPRESSION: Ill-defined subpleural groundglass opacities are seen more prominent in the lung bases , may represent atypical pneumonia or viral pneumonia (COVID-19 ?). Electronically Signed: Kenny Baker, at 6:03 EST Tel , Service support , Operations: None Procedures: None Summary of Care Provided: The patient is a 55 year old F admitted 08/14/2020 due to fever, chills, cough, increased confusion. 1. Acute sepsis secondary to bilateral community-acquired pneumonia-chest x-ray with subpleural groundglass opacities in the lung bases, possible viral etiology. Covid and respiratory panel negative. Oxygen now stable on room air. Walking pulse ox prior completed prior to discharge and patient did not require further supplemental oxygen. Patient's sister who is radar technician reports patient is significantly improved. Patient improved quicker than expected and is stable on day of discharge. Discharged on oral Augmentin to complete course of antibiotics. Follow-up with primary care provider in 3 to 5 days. 2. Acute hypoxic respiratory insufficiency secondary to #1-oxygen now stable on room air. 3. Acute encephalopathy, secondary to #1/#2- improved, at baseline. 4. Down syndrome with underlying dementia, history of behavioral disturbances 5. Hypothyroidism-continue Synthroid. 6. Anxiety/depression-continue Celexa. Patient seen and examined prior to discharge. Physical assessment as noted zoran ocampo. Patient is stable for discharge with follow up recommendations as noted above. This patient was seen by AUDI Copeland under the supervision of Dr. Colon. Patient Problems: Active and Suspected Problems Sepsis (Acute) Encephalopathy acute (Acute) Pneumonia (Acute) Suspected COVID-19 virus infection (Acute) - Physical Exam Vitals/I&O's: Vital Signs Temp Pulse Resp BP Pulse Ox 99.1 F 77 16 104/68 96 08/15/20 09:06 08/15/20 09:06 08/15/20 09:06 08/15/20 09:06 08/15/20 09:06 Oxygen Flow Rate (L/min) 2 Oxygen Delivery Method Room Air Weight: 167 lb 1.766 oz Body Mass Index (BMI) 40.2 Intake and Output for Last 24 Hours 08/13/20 08/14/20 08/15/20 23:59 23:59 23:59 Intake Total 1525 / 1525 1138.75 / 1138.75 Balance 1525 / 1525 1138.75 / 1138.75 General: Alert, Cooperative, No apparent distress HEENT: Atraumatic, PERRLA, EOMI, Normocephalic Neck: Supple, No JVD, Negative Carotid Bruits Lungs: Clear to auscultation, Diminished Cardiovascular: Regular rate, No murmurs Abdomen: Bowel Sounds Present, Soft, Non Tender, Non-Distended, Obese Extremities: No clubbing, No cyanosis, No edema Skin: No rashes, No breakdown Musculoskeletal: No Tenderness to Palpation of Joints or Extremities Neurological: Cranial nerves II-XII grossly intact, Neuro grossly intact Psych/Mental Status: Normal Affect, Appropriate Microbiology Past 72 Hours 08/14/20 11:20 Mucosa - Nasopharyngeal Respiratory Panel (PCR) - Final Laboratory Results 08/14/20 05:10: PT Cancelled, INR Cancelled, Fibrinogen Cancelled, D-Dimer Quant (PE/DVT) Cancelled 08/14/20 05:10: Magnesium 2.0, Ferritin 170, Lactate Dehydrogenase 282 H, Troponin I < 0.015, C-React Prot Ext Range 69.10 H 08/14/20 05:10: Procalcitonin 0.25 H 08/14/20 05:10: B-Natriuretic Peptide 32.4 08/15/20 05:04: WBC 14.8 H, RBC 3.76 L, Hgb 11.8 L, Hct 37.1, MCV 98.7, MCH 31.4, MCHC 31.8 L, RDW Std Deviation 55.1 H, RDW Coeff of Karrie 15.1 H, Plt Count 220, MPV 10.7, Immature Gran % (Auto) 0.400, Neut % (Auto) 86.4 H, Lymph % (Auto) 8.1 L, [place] % (Auto) 4.9, Eos % (Auto) 0.0, Baso % (Auto) 0.2, Absolute Neuts (auto) 12.8 H, Absolute Lymphs (auto) 1.20, Nucleated RBC % 0 08/15/20 05:04: Sodium 140, Potassium 3.5, Chloride 109 H, Carbon Dioxide 26.0, Anion Gap 5, BUN 15, Creatinine 0.81, Estim Creat Clear Calc 95.01, Est GFR (MDRD) Af Amer 95, Est GFR (MDRD) Non-Af 79, BUN/Creatinine Ratio 18.6, Glucose 110 H, Calcium 8.3 L, Total Bilirubin 0.50, AST 21, ALT 22, Alkaline Phosphatase 76, Total Protein 6.6, Albumin 2.5 L, Globulin 4.1, Albumin/Globulin Ratio 0.6 L Current Medications Acetaminophen (Acetaminophen 325 Mg Tablet) 650 mg PO Q6H PRN PRN PRN Reason: Pain Score 1-10/Temp > 100.7 F Last Admin: 08/15/20 02:43 Dose: 650 mg Documented by: Al Hydroxide/Mg Hydroxide (Mag Hydrox/Al Hydrox/Simeth 30 Ml Udc) 30 ml PO Q6H PRN PRN PRN Reason: Gastric Burning Albuterol Sulfate (Albuterol 2.5 Mg/3 Ml Vial.Neb.) 2.5 mg INHALATION Q4H PRN PRN PRN Reason: dyspnea, wheezing Last Admin: 08/15/20 03:17 Dose: 2.5 mg Documented by: Citalopram Hydrobromide (Citalopram 20 Mg Tablet) 20 mg PO DAILY [facility] Last Admin: 08/15/20 08:49 Dose: 20 mg Documented by: Donepezil HCl (Donepezil Hcl 10 Mg Tablet) 10 mg PO QHS [facility] Last Admin: 08/14/20 21:44 Dose: 10 mg Documented by: Enoxaparin Sodium (Enoxaparin 40 Mg/0.4 Ml Syringe) 40 mg SC BID [facility] Last Admin: 08/15/20 08:49 Dose: 40 mg Documented by: Famotidine (Famotidine 20 Mg Tablet) 20 mg PO BID [facility] Last Admin: 08/15/20 08:49 Dose: 20 mg Documented by: Guaifenesin (Guaifenesin 10 Ml Udc (200mg/10ml)) 20 ml PO Q4H PRN PRN PRN Reason: COUGH Haloperidol Lactate (Haloperidol Lactate 5 Mg/Ml Vial) 0.5 mg IM Q4H PRN PRN PRN Reason: SEVERE AGITATION Hydralazine HCl (Hydralazine 20 Mg/Ml Vial) 10 mg IV Q4H PRN PRN PRN Reason: SBP > 160 Sodium Chloride () 250 mls @ 15 mls/hr IV .[id number] PRN PRN Reason: Saline Flush Sodium Chloride () 250 mls @ 15 mls/hr IV .[id number] PRN PRN Reason: Additional IVPB Infusion Ceftriaxone Sodium 2 gm/ (Sodium Chloride) 50 mls @ 100 mls/hr IV Q24 [facility] Last Infusion: 08/15/20 09:18 Dose: Infused Documented by: Azithromycin 500 mg/ Dextrose 255 mls @ 250 mls/hr IV Q24 [facility] Last Admin: 08/15/20 10:30 Dose: 250 mls/hr Documented by: Sodium Chloride () 250 mls @ 15 mls/hr IV .[id number] PRN PRN Reason: Saline Flush Sodium Chloride () 250 mls @ 15 mls/hr IV .[id number] PRN PRN Reason: Additional IVPB Infusion Sodium Chloride () 1,000 mls @ 75 mls/hr IV .[id number] [facility] Stop: 08/15/20 14:54 Last Admin: 08/15/20 00:52 Dose: 75 mls/hr Documented by: Levothyroxine Sodium (Levothyroxine 112 Mcg Tablet) 112 mcg PO DAILY@0600 [facility] Last Admin: 08/15/20 02:43 Dose: 112 mcg Documented by: Magnesium Hydroxide (Magnesium Hydroxide 30 Ml Udc) 30 ml PO DAILY PRN PRN PRN Reason: Constipation Melatonin (Melatonin 3 Mg Tablet) 3 mg PO QHS PRN PRN PRN Reason: INSOMNIA Morphine Sulfate (Morphine 2 Mg/Ml Syringe) 2 mg IV Q3H PRN PRN PRN Reason: Pain Score 6-10 Nitroglycerin (Nitroglycerin (Inpatient Use) 0.4 Mg Tab.Subl) 0.4 mg SUBLINGUAL Q5M PRN PRN Reason: CARDIAC/CHEST PAIN Ondansetron HCl (Ondansetron 4 Mg/2 Ml Vial) 4 mg IV Q8H PRN PRN PRN Reason: NAUSEA/VOMITING Oxycodone HCl (Oxycodone 5 Mg Tablet) 5 mg PO Q4H PRN PRN PRN Reason: Pain Score 4-5 Prochlorperazine Edisylate (Prochlorperazine 10 Mg/2 Ml Vial) 5 mg IV Q4H PRN PRN PRN Reason: Breakthrough nausea/vomiting Psyllium Hydrophilic Mucilloid (Psyllium 1 Packet) 1 packet PO DAILY PRN PRN PRN Reason: Constipation Quetiapine Fumarate (Quetiapine 25 Mg Tablet) 25 mg PO QHS [facility] Last Admin: 08/14/20 21:43 Dose: Not Given Documented by: Senna/Docusate Sodium (Senna/Docusate Sodium 1 Tablet) 2 tablet PO BID PRN PRN PRN Reason: Constipation Sodium Chloride (0.9% Saline Lock 10 Ml Syringe) 10 - 40 ml IV UD PRN PRN Reason: SALINE FLUSH Throat Lozenges (Benzocaine/Menthol 1 Lozenge) 1 lozenge MUCOUS MEM Q2H PRN PRN PRN Reason: SORE THROAT Discharge Diet: No Restrictions Discharge Activity: Return to Normal Activity Call your doctor if you observe: Fever of 101 or Higher, Shortness of breath, Dizziness, Fainting spells, Chest pain Home Medications: Medications to take at Discharge Citalopram [Celexa] 20 mg PO DAILY 08/14/20 Donepezil HCl 1 tab PO DAILY 08/14/20 Levothyroxine Sodium [Euthyrox] 112 mcg PO DAILY 08/14/20 Amox/Clavulanate Tablet [Augmentin Tablet] 875 mg PO Q12H #14 tab 08/15/20 Following Prescriptions Were Given to Patient: Amox/Clavulanate Tablet [Augmentin Tablet] 875 mg PO Q12H #14 tab Transmission Status: Received by [facility] Primary Care Physician: Silvio Hurtado Chi, MD [Primary Care Provider] - Please follow up with your Primary Care Physician in: 3-5 Days Disposition: Home Minutes spent on discharge:: 35 Patient Condition:: Stable Medical Necessity - Tobacco Use Smoking Status: Never smoker Tobacco Use: Non-smoker Meaningful Use Info Meaningful Use Diagnoses (Choose all that apply): None applicable <Sean Colon - Last Filed: 08/15/20 14:33> Discharge Date and Diagnosis - Primary Discharge Diagnosis Acute Problems: Active Problems Sepsis (Acute) Encephalopathy acute (Acute) Pneumonia (Acute) Suspected COVID-19 virus infection (Acute) - Secondary Discharge Diagnosis Chronic Problems: Chronic Problems Anxiety and depression (Chronic) Dementia (Chronic) Hypothyroidism (Chronic) Down syndrome (Chronic) Hospital Course and Treatment Summary of Care Provided: This patient was seen in conjunction with AUDI Copeland . I have independently interviewed and examined the patient and reviewed pertinent historical, laboratory, and other data. Please refer to AUDI Copeland note for details of this patient's presentation, findings, and recommendations. I have reviewed AUDI Copeland note and concur with documented findings. In brief, patient is a 5-year-old lady with history of Down syndrome admitted with fever chills and increasing confusion and assessment of sepsis in acute hypoxic respiratory insufficiency secondary to community-acquired pneumonia made admitted to regular nursing floor for further management Hospital course: As documented above - Physical Exam Vitals/I&O's: Vital Signs Temp Pulse Resp BP Pulse Ox 99.1 F 77 16 104/68 96 08/15/20 09:06 08/15/20 09:06 08/15/20 09:06 08/15/20 09:06 08/15/20 11:09 Oxygen Flow Rate (L/min) [ 0 AMBULATING on Room Air] Oxygen Flow Rate (L/min) [At 0 REST on Room Air] Oxygen Flow Rate (L/min) 2 Oxygen Delivery Method Room Air Weight: 75.8 kg Body Mass Index (BMI) 40.2 Intake and Output for Last 24 Hours 08/13/20 08/14/20 08/15/20 23:59 23:59 23:59 Intake Total 1525 / 1525 2255.00 / 2255.00 Balance 1525 / 1525 2255.00 / 2255.00 Microbiology Past 72 Hours 08/14/20 11:20 Mucosa - Nasopharyngeal Respiratory Panel (PCR) - Final Laboratory Results 08/14/20 05:10: Procalcitonin 0.25 H 08/14/20 05:10: B-Natriuretic Peptide 32.4 08/15/20 05:04: WBC 14.8 H, RBC 3.76 L, Hgb 11.8 L, Hct 37.1, MCV 98.7, MCH 31.4, MCHC 31.8 L, RDW Std Deviation 55.1 H, RDW Coeff of Karrie 15.1 H, Plt Count 220, MPV 10.7, Immature Gran % (Auto) 0.400, Neut % (Auto) 86.4 H, Lymph % (Auto) 8.1 L, [place] % (Auto) 4.9, Eos % (Auto) 0.0, Baso % (Auto) 0.2, Absolute Neuts (auto) 12.8 H, Absolute Lymphs (auto) 1.20, Nucleated RBC % 0 08/15/20 05:04: Sodium 140, Potassium 3.5, Chloride 109 H, Carbon Dioxide 26.0, Anion Gap 5, BUN 15, Creatinine 0.81, Estim Creat Clear Calc 95.01, Est GFR (MDRD) Af Amer 95, Est GFR (MDRD) Non-Af 79, BUN/Creatinine Ratio 18.6, Glucose 110 H, Calcium 8.3 L, Total Bilirubin 0.50, AST 21, ALT 22, Alkaline Phosphatase 76, Total Protein 6.6, Albumin 2.5 L, Globulin 4.1, Albumin/Globulin Ratio 0.6 L Inpatient E&M: [id number] Disch Hosp
--- NOTE | 2020-08-15 11:20 | CASEMGMT ---
DONAL ALEX Assessment: Face to Face with patient/sister for initial transition planning/care coordination assessment. DONAL ALEX introduced self and role at [facility], pt/sister voice understanding. Pt has down syndrome as well as dementia. Pt is alert to self at this time. Sister answers all questions appropriately at this time. Care providers, pharmacy, and demographics verified at this time. Presentation: Pt with cough, headache, chills, freq urination/confusion Admitting dx: Pna, sepsis PCP: [facility] Specialists: Sister states no current specialists at this time. [facility]erred [facility]acy: [facility] Insurance: [facility] Prescription Benefit: RR [facility] Living Will/HPOA: Sister states she is pt's HPOA and is aware that this is not on file at [facility] at this time. LNOK: Roberto Krishna, sister Living Arrangements: Pt lives with sister in 1 story home with 7 steps into garage and sister assists with ADL's. Transportation: Pt's sister drives and states no transportation concerns at this time. DME/HHC: Pt has the following DME: rollator, shower chair. Pt states that Dr. Hurtado's office is working on a script for a transport chair and also working on getting her a HCP placard for her car. Pt has not been to SNF or had HHC in the past. Pt does not qualify for home oxygen at this time. Sister states no concerns with pt going home at discharge. Pt is disabled. Pt does not smoke or drink ETOH. Sister states no further concerns/needs at this time. CM to follow for any further discharge planning/needs. Advised pt/sister to ask for CM if any further questions/concerns/needs arise, voices understanding. Pt Goal: Home Plan: [place] DONAL ALEX
== END 2020-08-15 12:29 | disposition home or self-care (01) | DRG 871 ==
LOC: ED 07:07 → PCU 08:56
PROVIDERS: Admitting Provider Family Medicine; Emergency Provider Emergency Medicine; PCP Family Medicine Geriatric Medicine; Visit Provider Internal Medicine
DX: A41.9 Sepsis, unspecified organism (principal); J18.9 Pneumonia, unspecified organism; F03.91 Unspecified dementia, unspecified severity, with behavioral disturbance; G93.40 Encephalopathy, unspecified; Z68.41 Body mass index [BMI] 40.0-44.9, adult; Q90.9 Down syndrome, unspecified; E03.9 Hypothyroidism, unspecified; F41.9 Anxiety disorder, unspecified; F32.9 Major depressive disorder, single episode, unspecified; R09.02 Hypoxemia; E66.01 Morbid (severe) obesity due to excess calories; Z79.890 Hormone replacement therapy; Z79.899 Other long term (current) drug therapy; Z83.3 Family history of diabetes mellitus; Z66 Do not resuscitate; Z20.828 Contact with and (suspected) exposure to other viral communicable diseases
CPT/HCPCS: 71045; 80053; 81001; 82728; 83605; 83615; 83735; 83880; 84145; 84484; 85025; 86140; 87633; 87635; 94640; 99285; J7030; J7050; A4216; J0696; J3486; U0002

== ENCOUNTER → 2020-10-24 09:55 | Outpatient (CLI) | payer MEDICARE, SELFPAY ==
[2020-08-14 12:30] VITALS: BMI 40.2
[2020-10-24 12:33] LABS: Absolute Lymphocyte Count 0.99 X10^3/uL (0.83-4.51); Absolute Neutrophil Count 2.3 X10^3/uL (2.0-7.7); Basophil% 2.3 % (0-1); Eosinophil# 0.22 X10^3/uL; Eosinophils% 5.1 % (0-5); Hemoglobin 13.6 g/dL (12.0-15.0); Lymphocyte # 0.99 X10^3/ul (4.0); Lymphocyte % 23.1 % (19-41); Mean Corp Hgb Conc 32.4 g/dL (32-36); Mean Corpuscular Hgb 31.7 pg (27.0-32.0); Mean Corpuscular Volume 97.9 fL (81-99); Mean Platelet Vol. 11.3 fl (6.2-12.0); Monocyte# 0.67 X10^3/uL; Monocyte% 15.7 % (0-10); NRBC Flagged by Analyzer 0 % (0-5); Neutrophil % 53.8 % (47-70); Platelet Count 245 K/mm3 (150-450); RBC Distribution Width CV 15.4 % (11.6-14.6); RBC Distribution Width SD 55.5 fl (35.1-43.9); Red Blood Count 4.29 M/mm3 (4.2-5.4); White Blood Count 4.3 K/mm3 (4.4-11.0)
[2020-10-24 12:48] LABS: Vitamin D,25 Hydroxy 37.2 ng/mL
[2020-10-24 12:59] LABS: ALB/GLOB Ratio 0.7 RATIO (0.9-2.4); AST(SGOT) 20 U/L (15-37); Alanine Aminotransfer ALT/SGPT 27 U/L (13-56); Alkaline Phosphatase 96 U/L (45-117); Anion Gap 4 (5-15); BUN 21 mg/dL (7-18); BUN/Creat Ratio 23.1 RATIO (10-20); Calcium,Total 8.6 mg/dL (8.5-10.1); Chloride 103 mmol/L (98-107); Creatinine, Serum 0.91 mg/dL (0.55-1.02); EST Glomerular Filtration Rate 68 mL/min (>60); Est Glom Filt Rate - Afr Amer 83 mL/min (>60); Globulin 4.3 g/dL (2.2-4.2); Glucose 73 mg/dL (74-106); Potassium 4.1 mmol/L (3.5-5.1); Protein, Total 7.3 g/dL (6.4-8.2); Sodium Level 138 mmol/L (136-145); Thyroid Stim Hormone (TSH) 0.97 uIU/mL (0.358-3.74)
== END ==
PROVIDERS: PCP Family Medicine Geriatric Medicine; Visit Provider Family Medicine Geriatric Medicine
DX: E55.9 Vitamin D deficiency, unspecified (principal); I10 Essential (primary) hypertension
CPT/HCPCS: 36415; 80053; 82306; 84443; 85025

== ENCOUNTER 2021-01-31 04:41 | Emergency (ER) | payer MEDICARE, SELFPAY ==
[2020-08-14 12:30] VITALS: BMI 40.2
[2021-01-31 04:41] VITALS: BP 130/88; PULSE 115; RESP 20; TEMP 37.3; O2SAT 94; BMI 44.0
[2021-01-31 04:46] VITALS: BP 130/88; PULSE 115; RESP 20; TEMP 37.3; O2SAT 94
--- NOTE | 2021-01-31 04:48 | EKG12_ITS ---
Test Reason : DYSRHYTHMIA Blood Pressure : / mmHG Vent. Rate : 093 BPM Atrial Rate : 093 BPM P-R Int : 134 ms QRS Dur : 082 ms QT Int : 352 ms P-R-T Axes : 062 036 051 degrees QTc Int : 437 ms Normal sinus rhythm Normal ECG Confirmed by BENOIT SEGURA, [place] ([id number]), web content editor MIGNON LY ([id number]) on 02/03/2021 9:38:02 AM Referred By: CL Confirmed By:MARCO A LABOY MD
--- NOTE | 2021-01-31 05:00 | RAD_ITS ---
STUDY: X-RAY CHEST REASON FOR EXAM: Female, 55 years old. cough, congestion and sob since 2 am. TECHNIQUE: Single AP portable view of the chest. COMPARISON: 08/14/2020 FINDINGS: Lungs are mildly hypoinflated. Interstitial prominence noted throughout suggesting edema and/or infection. No consolidation or effusion. Normal size heart. Normal mediastinum and obdulia. Normal visualized pulmonary arteries. Normal visualized aortic arch and descending thoracic aorta. Normal visualized thoracic spine. Normal visualized ribs, clavicles, and shoulders. There is no demonstrated abnormality of the visualized soft tissue structures of the upper abdomen. RAD/Chest 1 View (Portable) IMPRESSION: Additional edema throughout suggesting edema and/or infection Electronically Signed: Jose David Brambila DO at 5:21 EDT Tel , Service support ,
--- NOTE | 2021-01-31 05:04 | ED.DCSUM_ITS ---
History of Present Illness Chief Complaint: Cold Sx Informant: Patient, Family Narrative: 55-year-old female with past medical history of Down syndrome presents with her sister who is her caregiver with concern for cough and chest congestion that began approximately 2 and half hours ago. Sister states it seemed like she was coughing and trying to clear her throat. No fever, chills, nausea, vomiting, abdominal pain, chest pain, shortness of breath. No sick contacts. Past Medical History - Allergies and Home Meds Allergies/Adverse Reactions: Allergies No Known Allergies Allergy (Verified 01/31/21 04:43) Primary Care Physician: Silvio Hurtado Chi, MD [Primary Care Provider] - Prior records reviewed: Yes Past Medical History: - - downs syndrome Surgical History: - - Uterine fibroid resection. Lives: With Family Smoking Status: Never smoker Alcohol: None Drugs: None - Family History Maternal Family History: Reports: Cancer - History of lung cancer with tobacco use concurrent history., Diabetes Paternal Family History: Reports: Cancer - History of lung cancer with tobacco use history concurrently., Diabetes Review of Systems General: Denies: Chills, Fever, Sweats Eyes: Denies: Visual changes - bilaterally, Diplopia ENT: Denies: Rhinorrhea, Sore throat Cardiovascular: Denies: Chest pain, Palpitations Respiratory: Reports: Cough. Denies: Dyspnea, Dyspnea on exertion Gastrointestinal: Denies: Abdominal pain, Nausea, Vomiting, Diarrhea, Melena, Hematochezia Genitourinary: Denies: Dysuria, Hematuria, Frequency Musculoskeletal: Denies: Back pain, Extremity Pain Skin: Denies: Rash, Wounds Neurological: Denies: Headache, Weakness, Numbness Physical Exam Vital Signs/Narrative: Vital Signs Temp Pulse Resp BP Pulse Ox 01/31/21 04:46 99.1 F 115 H 20 H 130/88 H 94 01/31/21 04:41 99.1 F 115 H 20 H 130/88 H 94 Inital Vital Signs reviewed: Yes General: Well nourished, Well developed, No Acute Distress Head: Normocephalic, Atraumatic Eyes: Perrl, EOMI ENT: Moist mucous membranes, No rhinorrhea Neck: Supple, Nontender Cardiovascular: Regular rate, Regular rhythm, No murmurs Respiratory: No distress, CTA bilaterally, Chest nontender Abdomen: Soft, Nontender, Nondistended, Normal bowel sounds Back: Nontender, Normal Inspection Extremities: Nontender, No edema Skin: Normal color, No rash Neurological: Alert, Oriented x3, Cranial nerves II-XII grossly intact, Normal Strength, Normal Sensation Psychological: Normal affect, Normal Mood Diagnostic/Tx/Re-eval Chest X-Ray - ED: 1 View, Read by ED Physician, Read by Radiologist, - - Mild interstitial infiltrates. Clinical Impression(s) from Imaging Studies Chest X-Ray 01/31/21 05:00 IMPRESSION: Additional edema throughout suggesting edema and/or infection Electronically Signed: Jose David Brambila DO at 5:21 EDT Tel , Service support , Laboratory Data 01/31/21 01/31/21 05:05 05:05 WBC 11.3 H RBC 4.46 Hgb 14.1 Hct 43.5 MCV 97.5 MCH 31.6 MCHC 32.4 RDW Std Deviation 56.0 H RDW Coeff of Karrie 15.6 H Plt Count 210 MPV 10.4 Immature Gran % (Auto) 0.200 Neut % (Auto) 90.6 H Lymph % (Auto) 3.8 L [place] % (Auto) 4.5 Eos % (Auto) 0.3 Baso % (Auto) 0.6 Absolute Neuts (auto) 10.2 H Absolute Lymphs (auto) 0.43 L Nucleated RBC % 0 Sodium 138 Potassium 4.0 Chloride 104 Carbon Dioxide 34.0 H Anion Gap 0 L BUN 17 Creatinine 0.94 Estim Creat Clear Calc 89.43 Est GFR (MDRD) Af Amer 80 Est GFR (MDRD) Non-Af 66 BUN/Creatinine Ratio 18.2 Glucose 94 Calcium 8.9 Troponin I < 0.015 - Rhythm Strip Rhythm Strip: Sinus Rhythm Rate: 93 Ectopy: None - EKG Initial EKG Interpretation: Sinus Rhythm - Sinus rhythm at 93 bpm. SD interval of 134 ms. QTC of 437 ms. No evidence of ST elevation or depression at this time. - Medical Decision Making Patient appears well and nontoxic. No hypoxemia. Initially tachycardic which is secondary to the patient's anxiety of not wanting to get into the hospital bed. Following her being in the bed an EKG was done where her tachycardia has resolved. Breath sounds are somewhat coarse however patient is in no respiratory distress. No peripheral edema. Troponin negative. EKG nonischemic. Chest x-ray shows some interstitial coarsening. Given the patient has had a cough and a sore throat she will be treated for atypical pneumonia. COVID negative. Patient will be advised to follow-up with her primary care provider within the next few days. Sister agreeable and patient discharged home in stable condition. Impression: 1. Atypical pneumonia ED Disposition - Plan for ED Patient: Disposition: Home or Assisted Living Instructions: ED Pneumonia (Adult) Prescriptions: Azithromycin 250 mg PO DAILY #4 tablet Prescription Printed Referrals: Silvio Hurtado Chi, MD [Primary Care Provider] - 2 Days Additional Instructions: Please return for worsening shortness of breath or fevers.
[2021-01-31 05:12] LABS: Absolute Lymphocyte Count 0.43 X10^3/uL (0.83-4.51); Absolute Neutrophil Count 10.2 X10^3/uL (2.0-7.7); Basophil# 0.07 X10^3/uL; Basophil% 0.6 % (0-1); Eosinophil# 0.03 X10^3/uL; Eosinophils% 0.3 % (0-5); Hematocrit 43.5 % (37-47); Hemoglobin 14.1 g/dL (12.0-15.0); Lymphocyte # 0.43 X10^3/ul (0.83-4.51); Lymphocyte % 3.8 % (19-41); Mean Corp Hgb Conc 32.4 g/dL (32-36); Mean Corpuscular Hgb 31.6 pg (27.0-32.0); Mean Corpuscular Volume 97.5 fL (81-99); Mean Platelet Vol. 10.4 fl (6.2-12.0); Monocyte# 0.51 X10^3/uL; Monocyte% 4.5 % (0-10); NRBC Flagged by Analyzer 0 % (0-5); Neutrophil # 10.22 X10^3/uL (2.7-7.7); Neutrophil % 90.6 % (47-70); POSITIVE DIFFERENTIAL YES; Platelet Count 210 K/mm3 (150-450); RBC Distribution Width CV 15.6 % (11.6-14.6); Red Blood Count 4.46 M/mm3 (4.2-5.4); White Blood Count 11.3 K/mm3 (4.4-11.0)
[2021-01-31 05:15] LABS: Differential Indicated SCAN CRITERIA MET
[2021-01-31 05:27] LABS: Anion Gap 0 (5-15); BUN 17 mg/dL (7-18); BUN/Creat Ratio 18.2 RATIO (10-20); Calcium,Total 8.9 mg/dL (8.5-10.1); Chloride 104 mmol/L (98-107); Creatinine, Serum 0.94 mg/dL (0.55-1.02); EST Glomerular Filtration Rate 66 mL/min (>60); Est Glom Filt Rate - Afr Amer 80 mL/min (>60); Estimated Creatinine Clearance 89.43 ml/min; Glucose 94 mg/dL (74-106); Sodium Level 138 mmol/L (136-145)
[2021-01-31] MEDS: Azithromycin 250 MG Tablet 500 MG PO (05:44)
[2021-01-31 05:46] VITALS: BP 126/60; PULSE 87; RESP 16; O2SAT 94
== END 2021-01-31 05:46 | disposition home or self-care (01) ==
PROVIDERS: Emergency Provider Emergency Medicine; PCP Family Medicine Geriatric Medicine
DX: J18.9 Pneumonia, unspecified organism (principal); Q90.9 Down syndrome, unspecified; Z80.1 Family history of malignant neoplasm of trachea, bronchus and lung; Z83.3 Family history of diabetes mellitus
CPT/HCPCS: 71045; 80048; 84484; 85025; 87426; 93005; 99285; A4216

== ENCOUNTER → 2021-02-07 15:31 | Outpatient (CLI) | payer MEDICARE, SELFPAY ==
[2021-01-31 04:41] VITALS: BMI 44.0
== END ==
PROVIDERS: PCP Family Medicine Geriatric Medicine; Referring Provider Otolaryngology; Visit Provider Otolaryngology
DX: J02.9 Acute pharyngitis, unspecified (principal)
CPT/HCPCS: 87070

== ENCOUNTER → 2021-06-05 09:47 | Outpatient (CLI) | payer MEDICARE, SELFPAY ==
[2021-06-05 12:38] LABS: Absolute Lymphocyte Count 1.26 X10^3/uL (0.83-4.51); Basophil# 0.09 X10^3/uL; Basophil% 2.1 % (0-1); Eosinophil# 0.17 X10^3/uL; Hematocrit 42.7 % (37-47); Hemoglobin 13.7 g/dL (12.0-15.0); Lymphocyte # 1.26 X10^3/ul (0.83-4.51); Lymphocyte % 29.5 % (19-41); Mean Corp Hgb Conc 32.1 g/dL (32-36); Mean Corpuscular Hgb 31.6 pg (27.0-32.0); Mean Corpuscular Volume 98.4 fL (81-99); Mean Platelet Vol. 11.3 fl (6.2-12.0); Monocyte% 16.4 % (0-10); NRBC Flagged by Analyzer 0 % (0-5); Neutrophil # 2.04 X10^3/uL (2.7-7.7); Neutrophil % 47.8 % (47-70); POSITIVE MORPHOLOGY YES; Platelet Count 247 K/mm3 (150-450); RBC Distribution Width CV 14.7 % (11.6-14.6); RBC Distribution Width SD 53.1 fl (35.1-43.9); Red Blood Count 4.34 M/mm3 (4.2-5.4); White Blood Count 4.3 K/mm3 (4.4-11.0)
[2021-06-05 12:39] LABS: Differential Indicated SCAN CRITERIA MET
[2021-06-05 12:46] LABS: Vitamin D,25 Hydroxy 50.6 ng/mL
[2021-06-05 13:10] LABS: ALB/GLOB Ratio 0.7 RATIO (0.9-2.4); AST(SGOT) 20 U/L (15-37); Alanine Aminotransfer ALT/SGPT 29 U/L (13-56); Albumin, Serum 3.1 g/dL (3.2-5.0); Alkaline Phosphatase 110 U/L (45-117); Anion Gap 7 (5-15); BUN 15 mg/dL (7-18); BUN/Creat Ratio 17.9 RATIO (10-20); Calcium,Total 8.6 mg/dL (8.5-10.1); Chloride 102 mmol/L (98-107); Creatinine, Serum 0.84 mg/dL (0.55-1.02); EST Glomerular Filtration Rate 75 mL/min (>60); Est Glom Filt Rate - Afr Amer 91 mL/min (>60); Globulin 4.3 g/dL (2.2-4.2); Glucose 86 mg/dL (74-106); Potassium 3.8 mmol/L (3.5-5.1); Protein, Total 7.4 g/dL (6.4-8.2); Sodium Level 138 mmol/L (136-145); Thyroid Stim Hormone (TSH) 0.78 uIU/mL (0.358-3.74)
[2021-06-05 13:15] LABS: Differential Comment SCANNED; Reactive Lymphocyte 1+
== END ==
PROVIDERS: PCP Family Medicine Geriatric Medicine; Visit Provider Family Medicine Geriatric Medicine
DX: E55.9 Vitamin D deficiency, unspecified (principal); I10 Essential (primary) hypertension; N39.0 Urinary tract infection, site not specified
CPT/HCPCS: 36415; 80053; 82306; 84443; 85025; 87086; 87088

== ENCOUNTER 2021-07-23 14:28 | Emergency (ER) | payer MEDICARE, SELFPAY ==
[2021-07-23 14:29] VITALS: BP 124/94; PULSE 85; RESP 16; TEMP 36.6; O2SAT 99; BMI 37.1
--- NOTE | 2021-07-23 14:57 | ED.VIS.GI ---
HPI HPI - GI History of Present Illness Chief Complaint: Constipation Informant: patient and family Abdominal Pain/Flank Pain Onset: Days Context: Gradual Onset Timing: Continuous Current Severity: Mild Maximum Severity: Mild Nausea/Vomiting/Emesis GI Symptom: Negative for Nausea and Vomiting Diarrhea/Melena/Hematochezia GI Symptom: Negative for Diarrhea, Melena and Hematochezia Associated Symptoms Associated Symptoms: Negative for Dysuria, Frequency and Hematuria Narrative Narrative: 55-year-old female history of Down's and dementia. Brought in by family. Decreased bowel movements the last several days. Concern for constipation. No vomiting or diarrhea. They have tried to treat her with Metamucil and prune juice without any relief. No fever. Prior similar symptoms: Yes Recent Illness/Hospitalization: No PFSH PFSH Medical History Anxiety Dementia Depression Down's syndrome Hypothyroidism Home Medications citalopram 20 mg PO DAILY 08/14/20 [History Last Taken Unknown] donepezil 1 tab PO DAILY 08/14/20 [History Last Taken Unknown] levothyroxine 112 mcg PO DAILY 08/14/20 [History Last Taken Unknown] omeprazole 40 mg PO DAILY 07/23/21 [History Last Taken Unknown] Allergy/AdvReac Type Severity Reaction Status Date / Time No Known Allergies Allergy Verified 07/23/21 14:28 Social History Smoking Status: Never smoker ROS ROS ED ROS Narrative History of her family. Patient not answering questions. Review of Systems ROS Unobtainable: due to mental status; Denies due to encephalopathy Constitutional Constitutional ED: Denies fever(s) ENT ENT ED: Denies ear pain or sore throat Cardiovascular Cardiovascular: Denies chest pain Respiratory/Chest Respiratory/Chest: Denies dyspnea Gastrointestinal Gastrointestinal: Denies abdominal pain Genitourinary Genitourinary ED: Denies dysuria or hematuria Musculoskeletal Musculoskeletal: Denies myalgias Integumentary Denies rash Neurologic Neurologic: Denies headache(s) Psychiatric Psychiatric: Denies depression Endocrine Endocrinology: Denies polyuria Hematologic/Lymphatic Hematologic/Lymphatic: Denies easy bruising Allergic/Immunologic Allergic/Immunologic ED: Denies urticaria EXAM Physical Exam Narrative Exam Narrative: Erythema no acute distress vital signs stable afebrile. H EENT exam unremarkable. Neck nontender. Lungs clear to auscultation. Heart rhythm regular rate 85 no murmur. Abdomen soft nondistended bowel sounds no peritoneal signs. No localizing tenderness. No hernia or mass. No signs of obstruction. Positive bowel sounds. Moving all 4 extremities. No edema. Neurologically awake. Eyes open. Follows commands. Not speaking. Const Vital Signs: 07/23/21 14:29 Temperature 97.8 F Temperature Source Temporal Pulse Rate 85 Respiratory Rate 16 Blood Pressure 124/94 H Blood Pressure Mean 104 Pulse Ox 99 Oxygen Delivery Method Room Air Positive well nourished, well developed and obese; Negative for cachectic, contractures or unkempt General Appearance ED: well developed and NAD; Negative for unkempt, cachectic, contractures or pallor Nutritional Appearance: obese; Negative for cachectic HEENT Reports moist mucous membranes normocephalic and atraumatic Eyes PERRL and EOMs intact bilaterally Neck no lymphadenopathy, supple and no JVD General: Negative for tenderness Resp normal respiratory effort and clear to auscultation bilaterally Auscultation: Negative for rales, rhonchi or wheezes Cardio regular rate, regular rhythm, S1 normal heart sound, S2 normal heart sound and no murmurs GI non-tender, non-distended and no masses Auscultation: normoactive bowel sounds Palpation: soft; Negative for tender, guarding or rigid Back/Spine no CVA tenderness Extremity full ROM General Extremety ED: Negative for edema or tenderness General Extremity: Negative for edema Neuro moves all extremities Sensorium / Orientation: alert Psych mental status grossly normal Appearance: Negative for unkempt Skin no wounds General Skin Exam: Negative for jaundice or pallor Lesions: no lesions Rashes: no rashes MDM MDM MDM Narrative Medical decision making narrative: 55-year-old female history and exam consistent with constipation. Obtain a KUB. Repeat exam doing well at 3:16 PM. Will be discharged home with magnesium citrate. Radiography Diagnostic Testing: KUB shows increased stool in the left descending colon and rectum. No signs of obstruction. Interpreted by myself. 1 view. Discharge Plan Triage Chief Complaint: Constipation ED Provider: Franki Hartley Dx/Rx/DC Orders Clinical Impression: Constipation Instructions: ED Constipation (Adult) Prescriptions: No Action donepezil 10 MG tablet 1 tab PO DAILY RF: 0 citalopram 20 MG tablet 20 mg PO DAILY RF: 0 levothyroxine 112 MCG tablet 112 mcg PO DAILY RF: 0 omeprazole 40 mg capsule,delayed release(DR/EC) 40 mg PO DAILY RF: 0 Primary Care Provider: Silvio Hurtado Chi Referrals: Silvio Hurtado Chi, MD [Primary Care Provider] - 3-5 Days if not improving Activity Restrictions/Additional Instructions: Plenty of fluids and rest. Fruits, vegetables and fiber and/or fiber crackers. Help keep her regular and help her bowel movements. Magnesium citrate drink the first bottle and if she did no bowel movement in next 2 to 4 hours have her drink the second. Return if intractable vomiting or no bowel movement in the next 24 hours. Disposition Disposition: Home, Self Care
--- NOTE | 2021-07-23 15:00 | RAD_ITS ---
STUDY: X-RAY - ABDOMEN/PELVIS REASON FOR EXAM: Female, 55 years old. Constipation TECHNIQUE: Two AP supine views of the abdomen and pelvis. COMPARISON: None. FINDINGS: Normal visualized lung bases. There is a moderate amount of colonic fecal material. The visualized liver, spleen and kidneys are grossly normal in size and morphology. Normal soft tissue structures. There are diffuse degenerative changes of the visualized lumbar spine. RAD/Abdomen Single View IMPRESSION: Moderate amount of fecal material is seen in the colon. Electronically Signed: Bowen Dorado MD at 15:18 EDT , Service support ,
[2021-07-23] MEDS: Magnesium Citrate 300 ML PO ×2 (15:32)
== END 2021-07-23 15:34 | disposition home or self-care (01) ==
LOC: ED 15:15
PROVIDERS: Emergency Provider Emergency Medicine; PCP Family Medicine Geriatric Medicine
DX: K59.00 Constipation, unspecified (principal); E03.9 Hypothyroidism, unspecified; F03.90 Unspecified dementia, unspecified severity, without behavioral disturbance, psychotic disturbance, mood disturbance, and anxiety; F41.9 Anxiety disorder, unspecified; F32.9 Major depressive disorder, single episode, unspecified; A90 Dengue fever [classical dengue]; Q90.9 Down syndrome, unspecified; E66.9 Obesity, unspecified
CPT/HCPCS: 74018; 99283

== ENCOUNTER 2021-11-05 08:26 | Outpatient (CLI) | payer MEDICARE, SELFPAY ==
--- NOTE | 2021-11-05 08:45 | RAD_ITS ---
STUDY: X-RAY - ESOPHAGUS (BARIUM SWALLOW) WITH FLUOROSCOPY REASON FOR EXAM: Female, 56 years old. DYSPHAGIA TECHNIQUE: 42 view(s) of the esophagus were obtained following swallowing of barium. Limited study due to the patient''s condition. FLUOROSCOPY TIME (if supplied): (1 minute) minutes/seconds COMPARISON: None. FINDINGS: There is no demonstrated esophageal foreign body. There is delay of transit within the esophagus. There is 2 and fro motion of contrast with narrowing at the level of the gastroesophageal junction. Achalasia should be ruled out. There is atherosclerotic tortuosity of the aortic arch and descending thoracic aorta. Normal visualized pulmonary parenchyma. Normal visualized osseous structures of the thorax. RAD/Esophagus Single Contrast IMPRESSION: Findings suggestive of achalasia. Electronically Signed: Bowen Dorado MD at 13:07 EST ,
[2021-11-05 12:10] LABS: Absolute Lymphocyte Count 1.04 X10^3/uL (0.83-4.51); Absolute Neutrophil Count 2.4 X10^3/uL (2.0-7.7); Basophil# 0.11 X10^3/uL; Basophil% 2.6 % (0-1); Eosinophil# 0.13 X10^3/uL; Hematocrit 44.8 % (37-47); Hemoglobin 14.5 g/dL (12.0-15.0); Lymphocyte # 1.04 X10^3/ul (0.83-4.51); Lymphocyte % 24.3 % (19-41); Mean Corp Hgb Conc 32.4 g/dL (32-36); Mean Corpuscular Hgb 31.5 pg (27.0-32.0); Mean Corpuscular Volume 97.2 fL (81-99); Mean Platelet Vol. 11.4 fl (6.2-12.0); Monocyte# 0.56 X10^3/uL; Monocyte% 13.1 % (0-10); NRBC Flagged by Analyzer 0 % (0-5); Neutrophil # 2.44 X10^3/uL (2.7-7.7); Platelet Count 204 K/mm3 (150-450); RBC Distribution Width CV 15.1 % (11.6-14.6); RBC Distribution Width SD 54.2 fl (35.1-43.9); Red Blood Count 4.61 M/mm3 (4.2-5.4); White Blood Count 4.3 K/mm3 (4.4-11.0)
[2021-11-05 12:30] LABS: Vitamin D,25 Hydroxy 60.7 ng/mL
[2021-11-05 12:53] LABS: ALB/GLOB Ratio 0.7 RATIO (0.9-2.4); AST(SGOT) 29 U/L (15-37); Alanine Aminotransfer ALT/SGPT 33 U/L (13-56); Albumin, Serum 3.2 g/dL (3.2-5.0); Alkaline Phosphatase 103 U/L (45-117); Anion Gap 5 (5-15); BUN 14 mg/dL (7-18); BUN/Creat Ratio 14.2 RATIO (10-20); Calcium,Total 9.1 mg/dL (8.5-10.1); Chloride 107 mmol/L (98-107); Creatinine, Serum 0.98 mg/dL (0.55-1.02); EST Glomerular Filtration Rate 62 mL/min (>60); Est Glom Filt Rate - Afr Amer 75 mL/min (>60); Globulin 4.5 g/dL (2.2-4.2); Glucose 95 mg/dL (74-106); Potassium 3.9 mmol/L (3.5-5.1); Protein, Total 7.7 g/dL (6.4-8.2); Sodium Level 140 mmol/L (136-145); Thyroid Stim Hormone (TSH) 1.08 uIU/mL (0.358-3.74)
== END 2021-11-05 23:59 | disposition short-term general hospital (02) ==
PROVIDERS: PCP Family Medicine Geriatric Medicine; Referring Provider Otolaryngology; Visit Provider Otolaryngology
DX: R13.10 Dysphagia, unspecified (principal); I10 Essential (primary) hypertension; E55.9 Vitamin D deficiency, unspecified
CPT/HCPCS: 36415; 74220; 80053; 82306; 84443; 85025

== ENCOUNTER 2022-01-07 16:24 | Outpatient (CLI) | payer MEDICARE, SELFPAY ==
--- NOTE | 2022-01-07 16:28 | CT_ITS ---
STUDY: CT BRAIN WITHOUT CONTRAST REASON FOR EXAM: Female, 56 years old. DOWNS SYNDROME/DEMENTIA ALZHEIMER''S TECHNIQUE: Transaxial CT imaging of the brain was performed without administration of intravenous contrast material. Individualized dose optimization techniques were used for this CT. COMPARISON: None FINDINGS: Normal calvarium. Normal soft tissues. There is disproportionate enlargement of the lateral and third ventricles, as compared to the extra-axial spaces. The findings suggest normal pressure hydrocephalus (NPH). Normal white matter tracts of the cerebral hemispheres. Normal basal ganglia and thalami. Normal brainstem. Normal cerebellum. There is no intracranial hemorrhage. There are no findings of an acute ischemic infarction. Normal visualized paranasal sinuses. ASPECTS 10 CT/Brain/Head without Contrast IMPRESSION: There are no acute intracranial findings. There is disproportionate enlargement of the lateral and third ventricles, as compared to the extra-axial spaces. The findings suggest normal pressure hydrocephalus (NPH). Electronically Signed: Joey Paz MD at 16:55 EDT ,
== END 2022-01-07 23:59 | disposition home or self-care (01) ==
PROVIDERS: PCP Family Medicine Geriatric Medicine; Referring Provider Family Medicine Geriatric Medicine; Visit Provider Family Medicine Geriatric Medicine
DX: G30.9 Alzheimer's disease, unspecified (principal)
CPT/HCPCS: 70450

== ENCOUNTER 2022-03-09 10:22 | Emergency (ER) | payer MEDICARE, SELFPAY ==
[2022-03-09 10:23] VITALS: BP 143/100; PULSE 108; RESP 20; TEMP 36.3; O2SAT 93; BMI 34.4
[2022-03-09 10:27] VITALS: BP 143/100; PULSE 108; RESP 20; TEMP 36.3; O2SAT 93
--- NOTE | 2022-03-09 10:40 | CT_ITS ---
HISTORY: seizure. TECHNIQUE: Multiple axial images were obtained of the head without intravenous contrast. A radiation dose optimization technique was used for this scan. 226 images. COMPARISON: 01/07/2022. FINDINGS: BRAIN PARENCHYMA: No significant attenuation abnormality. No acute intra-axial hemorrhage. CSF SPACES: Unchanged enlargement of the cerebral ventricles relative to the other extra-axial CSF spaces. No midline shift or other significant mass effect. No acute extra-axial hemorrhage. CALVARIUM: Intact. PARANASAL SINUSES AND MASTOID AIR CELLS: Clear. ORBITS: Unremarkable. CT/Brain/Head without Contrast IMPRESSION: No acute intracranial hemorrhage identified. Unchanged ventriculomegaly or hydrocephalus. Electronically Signed: Angie Draper MD at 11:49 EDT ,
--- NOTE | 2022-03-09 10:40 | RAD_ITS ---
HISTORY: seizure. TECHNIQUE: XR Chest 1 View. COMPARISON: 01/31/2021. FINDINGS: CARDIOMEDIASTINAL BORDERS: Cardiac silhouette within normal limits in size. Mediastinal contour unremarkable. LUNGS: Radiographically clear. PLEURA: No pleural effusion or pneumothorax seen. OSSEOUS STRUCTURES: Anterior dislocation of the right glenohumeral joint again seen. RAD/Chest 1 View (Portable) IMPRESSION: Right shoulder dislocation. No acute cardiopulmonary process identified. Electronically Signed: Angie Draper MD at 11:38 EDT ,
--- NOTE | 2022-03-09 10:41 | EKG12_ITS ---
Test Reason : Blood Pressure : / mmHG Vent. Rate : 098 BPM Atrial Rate : 098 BPM P-R Int : 140 ms QRS Dur : 078 ms QT Int : 342 ms P-R-T Axes : 043 001 033 degrees QTc Int : 436 ms Normal sinus rhythm Normal ECG Confirmed by ISMAEL HUITRON MD ([id number]), general expeditor URSULA DE JESUS ([id number]) on 03/10/2022 1:30:06 PM Referred By: THO Confirmed By:ISMAEL HUITRON MD
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
[2022-03-09 10:52] LABS: Absolute Lymphocyte Count 1.22 X10^3/uL (0.83-4.51); Absolute Neutrophil Count 4.6 X10^3/uL (2.0-7.7); Basophil# 0.11 X10^3/uL; Basophil% 1.6 % (0-1); Eosinophil# 0.25 X10^3/uL; Eosinophils% 3.6 % (0-5); Hematocrit 44.8 % (37-47); Hemoglobin 15.5 g/dL (12.0-15.0); Lymphocyte # 1.22 X10^3/ul (0.83-4.51); Lymphocyte % 17.6 % (19-41); Mean Corp Hgb Conc 34.6 g/dL (32-36); Mean Corpuscular Hgb 32.4 pg (27.0-32.0); Mean Corpuscular Volume 93.7 fL (81-99); Mean Platelet Vol. 10.9 fl (6.2-12.0); Monocyte% 10.1 % (0-10); NRBC Flagged by Analyzer 0 % (0-5); Neutrophil # 4.62 X10^3/uL (2.7-7.7); Neutrophil % 66.4 % (47-70); Platelet Count 286 K/mm3 (150-450); RBC Distribution Width CV 14.7 % (11.6-14.6); RBC Distribution Width SD 50.9 fl (35.1-43.9); Red Blood Count 4.78 M/mm3 (4.2-5.4)
[2022-03-09 11:00] LABS: Prothrombin Time (Protime)PT. 12.9 SECONDS (11.7-14.9)
[2022-03-09 11:01] LABS: Partial Thromboplast Time 26.9 Seconds (24.1-36.2)
[2022-03-09 11:06] LABS: Bedside Glucose 130 mg/dL (74-106)
[2022-03-09 11:08] LABS: Anion Gap 6 (5-15); BUN 14 mg/dL (7-18); BUN/Creat Ratio 15.8 RATIO (10-20); Calcium,Total 9.3 mg/dL (8.5-10.1); Chloride 107 mmol/L (98-107); Creatinine, Serum 0.88 mg/dL (0.55-1.02); EST Glomerular Filtration Rate 70 mL/min (>60); Est Glom Filt Rate - Afr Amer 85 mL/min (>60); Estimated Creatinine Clearance 74.01 ml/min; Glucose 124 mg/dL (74-106); Potassium 3.8 mmol/L (3.5-5.1); Sodium Level 139 mmol/L (136-145)
[2022-03-09 11:58] LABS: Bacteria 0 SEEN /hpf (None Seen); Mucous, Urine 0 SEEN /hpf (<or=2+); Red Blood Cells-Urine 0 SEEN /hpf (0-5); Squamous Epithelial Cells - UA 0 SEEN /hpf (5-10); White Blood Cells 0 SEEN /hpf (0-5)
[2022-03-09 12:02] LABS: Color, Urine Yellow (Yellow); Glucose, Dipstick Normal (Normal); Ketone-Dipstick Negative (Negative); Leukocyte Esterase-Dipstick Negative /ul (Negative); Nitrite-Dipstick Negative (Negative); Occult Blood-Urine Negative /ul (Negative); Protein-Dipstick Negative (Negative); Specific Gravity, Urine 1.015 (1.002-1.030); Urine Bilirubin Dipstick Negative (Negative); Urine Clarity Clear (Clear); Urine Urobilinogen Normal (Normal)
[2022-03-09 12:33] VITALS: BP 160/111; BP 160/99; PULSE 100; RESP 23; TEMP 36.6; O2SAT 93
--- NOTE | 2022-03-09 12:34 | RAD_ITS ---
HISTORY dislocation. TECHNIQUE: XR Shoulder Min 2 Views. COMPARISON: None. FINDINGS: BONES : Old right third rib fracture. Flattening and sclerosis of the humeral head, likely old injury. JOINTS: Anterior inferior glenohumeral subluxation. Degenerative changes noted. SOFT TISSUES: Mild opacity in the right lung base, which may represent atelectasis. RAD/Shoulder min 2 Views IMPRESSION: Anterior inferior glenohumeral dislocation of the right shoulder. Electronically Signed: Angie Draper MD at 13:24 EDT ,
--- NOTE | 2022-03-09 13:18 | RAD_ITS ---
HISTORY reduction -- y view. TECHNIQUE: XR Shoulder 1 View. COMPARISON: 13:02. FINDINGS: BONES : Age-indeterminate impaction injury withflattening of the humeral head again seen. JOINTS: Anterior subluxation of the glenohumeral joint again seen. RAD/Shoulder One View IMPRESSION: Anterior subluxation of the glenohumeral joint. Electronically Signed: Angie Draper MD at 14:02 EDT ,
--- NOTE | 2022-03-09 13:51 | NURSING ---
1330 dr. russell at bedside and attempts made to reduce rt shoulder dislocation. sister reports that has been chronically out and refusing to wear any sling at home or [facility]. repeat xray still showed dislocation. xrays sent to [facility] and dr. russell discussed findings with ortho from when last seen. pt responding still to painful stimuli. bp elevated and dr. pollack. consent for transfer signed per randy amato with no questions voiced
== END 2022-03-09 13:55 | disposition other institution (70) ==
PROVIDERS: Emergency Provider Emergency Medicine; PCP Family Medicine Geriatric Medicine; Visit Provider Emergency Medicine
DX: R56.9 Unspecified convulsions (principal); G91.9 Hydrocephalus, unspecified; F02.80 Dementia in other diseases classified elsewhere, unspecified severity, without behavioral disturbance, psychotic disturbance, mood disturbance, and anxiety; G30.9 Alzheimer's disease, unspecified; S43.014A Anterior dislocation of right humerus, initial encounter; S00.512A Abrasion of oral cavity, initial encounter; S43.004A Unspecified dislocation of right shoulder joint, initial encounter; Q90.9 Down syndrome, unspecified; E03.9 Hypothyroidism, unspecified; F32.A Depression, unspecified; Z87.440 Personal history of urinary (tract) infections; X58.XXXA Exposure to other specified factors, initial encounter; F41.9 Anxiety disorder, unspecified; Z79.82 Long term (current) use of aspirin
CPT/HCPCS: 70450; 71045; 73020; 73030; 80048; 81001; 82962; 85025; 85610; 85730; 87811; 93005; 96365; 99285; J7040; J7050; P9612; A4216